=== PATIENT | female | born 1990 | race Caucasian/White ===

== ENCOUNTER 2017-03-24 22:23 | Emergency (ER) | payer SELFPAY ==
[2017-03-24 22:39] VITALS: BP 124/79
[2017-03-24] MEDS ORDERED: Ondansetron 4 MG Tab.DIS PO ONE (23:44)
[2017-03-24] MEDS ORDERED: Acetaminophen/oxyCODONE 325-5 MG Tab PO ONE (23:46)
[2017-03-24] MEDS ORDERED: Clindamycin HCl 150 MG Cap PO ONE (23:46)
--- NOTE | 2017-03-24 23:51 | EDM.PDOC ---
ED HPI GENERAL MEDICAL PROBLEM - General Chief Complaint: ENT Problem Stated Complaint: TOOTHACHE/EAR AND NECK HURTS Time Seen by Provider: 03/24/17 23:44 Source of Information: Reports: Patient History Limitations: Reports: No Limitations - History of Present Illness INITIAL COMMENTS - FREE TEXT/NARRATIVE: 26-year-old female presents to the ED with severe pain right lower canine tooth. She states 4 days ago she bit into a taco chip and the tooth fractured. Initially it hurt it was sensitive to air but over the last 48 hours is become constant throbbing pain and she can feel swelling along her right mandible bringing up into her right ear. Motrin in high dose has not been controlling the pain. 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.) Lower Oral/Mouth Pain Score (Numeric/FACES): 7 - Related Data Allergies Allergy/AdvReac Type Severity Reaction Status Date / Time No Known Allergies Allergy Verified 03/24/17 22:32 Home Meds: Home Meds Albuterol [Ventolin HFA] 2 puff INH ASDIRECTED PRN 03/24/17 [History] Clindamycin HCl 300 mg PO TID #24 capsule 03/24/17 [Rx] Ibuprofen [Motrin] 800 mg PO Q6H PRN 03/24/17 [History] Ondansetron [Zofran ODT] 4 mg PO Q6H #2 tab.dis 03/24/17 [Rx] Ondansetron [Zofran ODT] 4 mg PO Q6H #5 tab.dis 03/24/17 [Rx] oxyCODONE HCl/Acetaminophen [Percocet 5-325 mg Tablet] 1 - 2 each PO Q4H PRN # 20 tablet 03/24/17 [Rx] oxyCODONE HCl/Acetaminophen [Percocet 5-325 mg Tablet] 1 - 2 each PO Q4H PRN #5 tablet 03/24/17 [Rx] Past Medical History HEENT History: Reports: Impaired Vision Respiratory History: Reports: Asthma Gastrointestinal History: Reports: Cholelithiasis 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: - Past Surgical History GI Surgical History: Reports: Appendectomy, Cholecystectomy Social & Family History - Family History Family Medical History: Noncontributory - Tobacco Use Smoking Status *Q: Never Smoker - Caffeine Use Caffeine Use: Reports: Soda - Recreational Drug Use Recreational Drug Use: No - Living Situation & Occupation Living situation: Reports: Occupation: Unemployed ED ROS ENT - Review of Systems Review Of Systems: See Below Constitutional: Denies: Fever, Chills, Malaise, Weakness, Fatigue HEENT: Reports: Dental Pain (Dental pain right), Ear Pain (Right side) Respiratory: Reports: No Symptoms Cardiovascular: Reports: No Symptoms Endocrine: Reports: No Symptoms GI/Abdominal: Reports: No Symptoms : Reports: No Symptoms Musculoskeletal: Reports: No Symptoms Skin: Reports: No Symptoms Neurological: Reports: No Symptoms Psychiatric: Reports: No Symptoms Hematologic/Lymphatic: Reports: No Symptoms ED EXAM, ENT - Physical Exam Exam: See Below Exam Limited By: No Limitations General Appearance: Alert, WD/WN, Moderate Distress Ears: Normal TMs Mouth/Throat: Dental Pain (Pain is coming from fracture of the crown of the right lower canine tooth. Hall me 40% of the lingual surface is fractured away from the tooth. The pulp is likely exposed.), Dental Tenderness, Dental Trauma ( Severe right lower canine tooth fractured the tooth by biting into a taco chip.) , Other (Right facial swelling along the mandible.) Head: Atraumatic, Normocephalic, Facial Swelling (Along the right mandible rating up to her right ear.) Neck: Normal Inspection, Supple, Non-Tender, Full Range of Motion. No: Lymphadenopathy (L), Lymphadenopathy (R) Respiratory/Chest: No Respiratory Distress, Lungs Clear, Normal Breath Sounds, No Accessory Muscle Use Course - Vital Signs Last Recorded V/S: Last Vital Signs Temp 36.3 C 03/24/17 22:34 Pulse 84 03/24/17 22:34 Resp 18 03/24/17 22:34 BP 124/79 03/24/17 22:34 Pulse Ox 100 03/24/17 22:34 - Orders/Labs/Meds Meds: Medications Discontinued Medications Generic Name Dose Route Start Last Admin Trade Name Daniel PRN Reason Stop Dose Admin Clindamycin HCl 300 mg 03/24/17 23:46 03/24/17 23:59 Cleocin PO 03/24/17 23:47 300 mg ONETIME ONE Administration Ondansetron HCl 4 mg 03/24/17 23:44 03/24/17 23:58 Zofran Odt PO 03/24/17 23:45 4 mg ONETIME ONE Administration Oxycodone/Acetaminophen 2 tab 03/24/17 23:46 03/24/17 23:58 Percocet 325-5 Mg PO 03/24/17 23:47 2 tab ONETIME ONE Administration - Radiology Interpretation Free Text/Narrative:: 26-year-old female presents to the ED with dental pain right lower canine tooth. She reports she bit into a taco chip in the tooth fractured about 4 days ago. Initially was very sensitive to air into temperature over the last 48 hours has become constant severe throbbing pain uncontrolled by Motrin at high doses. Examination shows no obvious abscess of the gingiva margin. The crown of the tooth isn't fractured partially 40% of the lingual surfaces broken away and the pulp is exposed suspect secondary infection. Treated with Percocet tabs 2 tablets given in the ED 02/11/25 milligrams strength with Zofran 4 mg sublingual as she mentioned she gets quite nauseated from Vicodin in the past. She will continue Aleve 2 tablets every 8 hours. Percocet 1 tablet every 4-6 hours needed for pain relief with Zofran that I did send home with her if needed for nausea relief. She was placed on clindamycin 300 mg given in the ED and then she is to take 300 mg 3 times a day for direct 8 days. She is to follow-up with dentist as soon as possible to have the tooth x-rayed and potentially capped or root canal done. The tooth is still salvageable. Departure - Departure Time of Disposition: 23:47 Disposition: Home, Self-Care 01 Condition: Fair Clinical Impression: Pain, dental Fractured tooth due to trauma with complication Qualifiers: Encounter type: initial encounter Fracture type: closed Qualified Code(s): S02.5XXA - Fracture of tooth (traumatic), initial encounter for closed fracture - Discharge Information Prescriptions: Clindamycin HCl 300 mg PO TID #24 capsule Ondansetron [Zofran ODT] 4 mg PO Q6H #2 tab.dis Ondansetron [Zofran ODT] 4 mg PO Q6H #5 tab.dis oxyCODONE HCl/Acetaminophen [Percocet 5-325 mg Tablet] 1 - 2 each PO Q4H PRN #5 tablet PRN Reason: pain relief. oxyCODONE HCl/Acetaminophen [Percocet 5-325 mg Tablet] 1 - 2 each PO Q4H PRN # 20 tablet PRN Reason: pain relief. Instructions: Tooth Injuries, [id number] Referrals: PCP,None [Primary Care Provider] - Forms: ED Department Discharge Additional Instructions: Evaluation in the emergency room today in regards to fracture of the right lower canine tooth with secondary infection developing with spread of infection along the mandible or jaw towards her ear. The tooth is still salvageable and so follow-up with dentist as soon as able. Suggest Aleve 2 tablets every 8 hours to relieve pain and inflammation. Percocet 5/325 milligrams tablet 1 or 2 every 4-6 hours as needed for pain relief. May use Zofran 4 mg under tongue every 6 hours a few expense any nausea from the pain medication. Antibiotic is to be clindamycin 300 mg 3 times daily for the next 8 days to clear up infection. First dose was given in the ED tonight. If you don't find any luck with a local dentist tomorrow you may call [facility] in [place] phone number is [phone] Thuan Ellis.
== END 2017-03-25 00:30 | disposition home or self-care (01) ==
LOC: JD.ED 22:23
DX: K08.89 Other specified disorders of teeth and supporting structures (principal); J45.909 Unspecified asthma, uncomplicated; Z90.49 Acquired absence of other specified parts of digestive tract
CPT/HCPCS: 99283; A9270

== ENCOUNTER 2017-04-29 22:09 | Emergency (ER) | payer SELFPAY ==
[2017-04-29 22:19] VITALS: BP 133/91
[2017-04-29] MEDS ORDERED: Clindamycin HCl 150 MG Cap PO ONE (23:03)
--- NOTE | 2017-04-29 23:03 | EDM.PDOC ---
ED HPI GENERAL MEDICAL PROBLEM - General Chief Complaint: ENT Problem Stated Complaint: TOOTHACHE/HEADACHE Time Seen by Provider: 04/29/17 22:50 Source of Information: Reports: Patient History Limitations: Reports: No Limitations - History of Present Illness INITIAL COMMENTS - FREE TEXT/NARRATIVE: Patient is a history of poor dentition and presents ED complaining of right lower teeth pain or she has large fillings in place (32,31,30). In addition she has pain to the left # 11 tooth. States she's been having intermittent pain to the affected teeth for quite some time. She has been on antibiotics such as amoxicillin approximate 6 weeks ago for similar symptoms. She is waiting for her to obtain dental insurance to which she can have definitive treatment. She has contacted a dentist and [place] that will allow her to pay [employer]. Unknown name. This is scheduled for next Thursday. Pain is described as a throbbing sensation that radiates into her back portion of her jaw. She has not taken any medications for it as of recent. Has increasing pain with chewing on the affected sides. She denies fever/chills, nausea/vomiting, pain to her neck, or any additional complaint. 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 ED EXAM, ENT - Physical Exam Exam: See Below Exam Limited By: No Limitations General Appearance: Alert, WD/WN, Mild Distress Eye Exam: Bilateral Eye: PERRL Ears: Hearing Grossly Normal Nose: Normal Inspection Mouth/Throat: Normal Inspection, Dental Tenderness (With gentle pressure to #32 , 31, 30, and 11 tooth. Poor dentition noted. Mild gum swelling present.). No: Drooling, Dry Mucous Membrane, Muffled Voice, Pharyngeal Erythema, Throat Swelling, Tonsillar Erythema, Tonsillar Exudates, Tonsillar Swelling, Trismus, Uvular Deviation Head: Atraumatic, Normocephalic Neck: Normal Inspection, Supple, Non-Tender. No: Lymphadenopathy (L), Lymphadenopathy (R) Respiratory/Chest: No Respiratory Distress, No Accessory Muscle Use Cardiovascular: Normal Peripheral Pulses, Regular Rate, Rhythm Neurological: Alert, Oriented, CN II-XII Intact, Normal Cognition, No Motor/ Sensory Deficits Psychiatric: Normal Affect, Normal Mood Skin: Warm, Dry, Intact, Normal Color Course - Vital Signs Last Recorded V/S: Last Vital Signs Temp 97.7 F 04/29/17 22:15 Pulse 69 04/29/17 22:15 Resp 16 04/29/17 22:15 BP 133/91 H 04/29/17 22:15 Pulse Ox 98 04/29/17 22:15 - Re-Assessments/Exams Free Text/Narrative Re-Assessment/Exam: Performed an right-sided inferior alveolar block with bupivacaine. Patient had immediate relief. Pain to the left upper tooth is not that significant. No dental block will be performed. Patient's been on amoxicillin in the past. Will place her on clindamycin with first doses here. She'll be discharged with instructions as documented. Departure - Departure Time of Disposition: 23:03 Disposition: Home, Self-Care 01 Condition: Good Clinical Impression: Dental abscess, Dental caries extending into dentin, Dental caries, Pain, dental - Discharge Information Prescriptions: Clindamycin HCl 300 mg PO TID #30 capsule Forms: ED Department Discharge Additional Instructions: Take the antibiotic as prescribed with a OTC probiotic. Utilize Tylenol and ibuprofen in alternating fashion for pain. See a dentist for definitive treatment. Return to ED as needed for any worsening symptoms.
== END 2017-04-29 23:28 | disposition home or self-care (01) ==
LOC: JD.ED 22:09
DX: K04.7 Periapical abscess without sinus (principal); K02.62 Dental caries on smooth surface penetrating into dentin; J45.909 Unspecified asthma, uncomplicated; Z90.49 Acquired absence of other specified parts of digestive tract
CPT/HCPCS: 64400; 99283; A9270

== ENCOUNTER 2017-05-02 05:11 | Emergency (ER) | payer SELFPAY ==
[2017-05-02 05:19] VITALS: BP 128/73
--- NOTE | 2017-05-02 05:52 | EDM.PDOC ---
ED HPI GENERAL MEDICAL PROBLEM - General Chief Complaint: Back Pain or Injury Stated Complaint: RIGHT SIDE AND BACK PAINS Time Seen by Provider: 05/02/17 05:18 Source of Information: Reports: Patient, Old Records, RN Notes Reviewed History Limitations: Reports: No Limitations - History of Present Illness INITIAL COMMENTS - FREE TEXT/NARRATIVE: The patient states that she developed pain in her right SI joint area yesterday morning, 05/01/2017. It is stabbing and crampy in character. It waxes and wanes. The patient has not identified any modifiers. She states that she has had nausea and nonbloody diarrhea, along with urinary frequency and urgency, but denies dysuria, fever, and constipation. No prior similar symptoms. The patient confirms that she is sexually active. The patient does not have a PCP. 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: - Past Surgical History GI Surgical History: Reports: Appendectomy, Cholecystectomy Social & Family History - Family History Family Medical History: Noncontributory - Tobacco Use Smoking Status *Q: Never Smoker - Caffeine Use Caffeine Use: Reports: Coffee, Soda - Alcohol Use Alcohol Use History: No - Recreational Drug Use Recreational Drug Use: No - Living Situation & Occupation Living situation: Reports: , with Spouse, with Family (3 kids) Occupation: Unemployed ED ROS GENERAL - Review of Systems Review Of Systems: See Below Constitutional: Reports: No Symptoms HEENT: Reports: No Symptoms Respiratory: Reports: No Symptoms Cardiovascular: Reports: No Symptoms Endocrine: Reports: No Symptoms GI/Abdominal: Reports: No Symptoms : Reports: No Symptoms Musculoskeletal: Reports: No Symptoms Skin: Reports: No Symptoms Neurological: Reports: No Symptoms Psychiatric: Reports: No Symptoms Hematologic/Lymphatic: Reports: No Symptoms Immunologic: Reports: No Symptoms ED EXAM, GENERAL - Physical Exam Exam: See Below Exam Limited By: No Limitations General Appearance: Alert, WD/WN, Mild Distress Eye Exam: Bilateral Eye: Normal Inspection Ears: Normal External Exam, Hearing Grossly Normal Nose: Normal Inspection, No Blood Throat/Mouth: Normal Inspection, Normal Lips, Normal Voice, No Airway Compromise Head: Atraumatic, Normocephalic Neck: Normal Inspection, Full Range of Motion Respiratory/Chest: No Respiratory Distress, Lungs Clear, Normal Breath Sounds, No Accessory Muscle Use Cardiovascular: Normal Peripheral Pulses, Regular Rate, Rhythm, No Gallop, No JVD, No Murmur, No Rub Peripheral Pulses: 4+: Radial (L), Radial (R) GI/Abdominal: Normal Bowel Sounds, Soft, No Organomegaly, No Distention, No Abnormal Bruit, No Mass, Tender (Mild, to the right lower quadrant only. Nontender elsewhere.) (Female) Exam: Deferred Rectal (Female) Exam: Deferred Back Exam: Normal Inspection, Full Range of Motion, CVA Tenderness (L), CVA Tenderness (R) Extremities: Normal Inspection, Normal Range of Motion, No Pedal Edema, Normal Capillary Refill Neurological: Alert, Oriented, Normal Cognition, No Motor/Sensory Deficits Psychiatric: Normal Affect Skin Exam: Warm, Dry, Intact, Normal Color, No Rash Lymphatic: No Adenopathy Course - Vital Signs Last Recorded V/S: Last Vital Signs Temp 37.7 C 05/02/17 05:16 Pulse 108 H 05/02/17 05:16 Resp 16 05/02/17 05:16 BP 128/73 05/02/17 05:16 Pulse Ox 100 05/02/17 05:16 - Orders/Labs/Meds Orders: Active Orders 24 hr Category Date Time Status CULTURE URINE [RM] Stat Lab 05/02/17 06:05 Uncollected Labs: Laboratory Tests 05/02/17 05/02/17 Range/Units 05:25 05:25 Urine Color Yellow (Yellow) Urine Appearance Cloudy H (Clear) Urine pH 6.0 (5.0-8.0) Ur Specific [place] 1.025 (1.005-1.030) Urine Protein 2+ H (Negative) Urine Glucose (UA) Negative (Negative) Urine Ketones Negative (Negative) Urine Occult Blood 2+ H (Negative) Urine Nitrite Positive H (Negative) Urine Bilirubin Negative (Negative) Urine Urobilinogen 0.2 (0.2-1.0) Ur Leukocyte Esterase 2+ H (Negative) Urine RBC 20-30 H (0-5) /hpf Urine WBC 75-100 H (0-5) /hpf Ur Epithelial Cells 0-5 (0-5) /hpf Amorphous Sediment Few H (NOT SEEN) /hpf Urine Bacteria Many H (FEW) /hpf Urine Mucus Few (FEW) /hpf Urine HCG, Qual Negative (NEGATIVE) Meds: Medications Discontinued Medications Generic Name Dose Route Start Last Admin Trade Name Frejoanna PRN Reason Stop Dose Admin Phenazopyridine HCl 95 mg 05/02/17 06:06 Urinary Pain Relief PO 05/02/17 06:07 ONETIME STA Trimethoprim/Sulfamethoxazole 1 tab 05/02/17 06:06 Septra Ds PO 05/02/17 06:07 ONETIME ONE - Re-Assessments/Exams Free Text/Narrative Re-Assessment/Exam: 05/02/17 06:11 Test results discussed with the patient. Her urinalysis is consistent with a UTI. A urine culture has been ordered. I will start her on oral Bactrim as well as her first dose of Pyridium. She is to stay adequately hydrated. I will refer her to the office of Dr. Henderson, where she should check in Thursday afternoon or Thursday morning, 05/05/2017, to check on her urine culture results. Departure - Departure Time of Disposition: 06:13 Disposition: Home, Self-Care 01 Condition: Good Clinical Impression: UTI (urinary tract infection) - Discharge Information Referrals: PCP,None [Primary Care Provider] - Joseluis Henderson [Physician] - Forms: ED Department Discharge Additional Instructions: You were seen in the emergency room for lower right back pain. Workup in the ER included a urinalysis, urine test, and a urine culture Your urinalysis is consistent with a urinary tract infection. You have been started on the antibiotic Bactrim. Take one tablet every 12 hours , as prescribed. Finish the entire prescription unless told otherwise by a doctor. You have been started on the anti-pain medicine Pyridium. This is also sold over -the-counter as "Azo". You may take a total of 5 more doses - either 3 times a day for 2 days, or 2 times a day for 3 days. Azo will turn your urine orange - this is normal. Stay adequately hydrated. This is especially important if you are sexually active. Contact the office of Dr. Henderson on Thursday afternoon, 05/04/2017, or 05/05/2017, to check on your urine culture results, to make sure that you are on the right antibiotic. If any other problems, please do not hesitate to return to the ER. - My Orders Last 24 Hours: My Active Orders 05/02/17 06:05 CULTURE URINE [RM] Stat - Assessment/Plan Last 24 Hours: My Active Orders 05/02/17 06:05 CULTURE URINE [RM] Stat
[2017-05-02] MEDS ORDERED: Sulfamethoxazole/Trimethoprim 800-160 MG Tab PO ONE (06:06)
[2017-05-02] MEDS ORDERED: Phenazopyridine 95 MG Tab PO STA (06:06)
== END 2017-05-02 06:25 | disposition home or self-care (01) ==
LOC: JD.ED 05:11
DX: N39.0 Urinary tract infection, site not specified (principal); J45.909 Unspecified asthma, uncomplicated; Z90.49 Acquired absence of other specified parts of digestive tract; Z79.899 Other long term (current) drug therapy
CPT/HCPCS: 81001; 81025; 87086; 87088; 87186; 99283; A9270; P9612

== ENCOUNTER 2018-03-28 12:44 | Emergency (ER) | payer BC ==
[2018-03-28 12:54] VITALS: BP 139/85
[2018-03-28] MEDS ORDERED: SUMAtriptan 6 MG/0.5 ML SDV SUBCUT ONE (13:43)
--- NOTE | 2018-03-28 13:43 | EDM.PDOC ---
ED HPI GENERAL MEDICAL PROBLEM - General Chief Complaint: Headache Stated Complaint: MIGRAINE AND LT EYE NOT FOCUSING Time Seen by Provider: 03/28/18 13:30 Source of Information: Reports: Patient History Limitations: Reports: No Limitations - History of Present Illness INITIAL COMMENTS - FREE TEXT/NARRATIVE: This is a 27-year-old female that has come in today for migraine. She states she had a headache started 4 days ago but it did not turn into a migraine until yesterday where she started to have light sensitivity, weakness, and started to have auras such as "flashing lights" and "pulsating spots". She has never had this type of migraine before. She states last night she felt so weak that she couldn't stand up and her legs "felt like mush". She also states that her left eye feels swollen and she can't focus and it "starts to move on its own". She had no history of this in the past. She also cannot wear her glasses because of the pain and the only thing that helps is being in a dark room with her eyes closed. She did try caffeine, Tylenol, Ibuprofen and meloxicam with no relief. She did not have any trauma, this was a random onset. She currently complains of nausea, weakness, night sweats, pain 6 out of 10. No vomiting. She is currently not on any control and has no other significant past medical history. Next appointment with her eye doctor is end of April. Headache Pain Score (Numeric/FACES): 7 - Related Data Allergies Allergy/AdvReac Type Severity Reaction Status Date / Time No Known Allergies Allergy Verified 05/02/17 05:19 Home Meds: Home Meds Ibuprofen [Motrin] 600 mg PO DAILY PRN 05/02/17 [History] Rizatriptan Benzoate [Rizatriptan] 5 mg PO Q2H PRN #5 tab.rapdis 03/28/18 [Rx] Past Medical History HEENT History: Reports: Impaired Vision Respiratory History: Reports: Asthma Gastrointestinal History: Reports: Cholelithiasis [employer] History: Reports: Musculoskeletal History: Reports: Other (See Below) Other Musculoskeletal History: Accessory nebicular - Past Surgical History GI Surgical History: Reports: Appendectomy, Cholecystectomy Social & Family History - Family History Family Medical History: Noncontributory - Tobacco Use Smoking Status *Q: Never Smoker - Caffeine Use Caffeine Use: Reports: Coffee, Soda - Recreational Drug Use Recreational Drug Use: No - Living Situation & Occupation Living situation: Reports: , with Spouse, with Family (3 kids) Occupation: Unemployed ED ROS GENERAL - Review of Systems Review Of Systems: See Below Constitutional: Reports: Weakness, Night Sweats. Denies: Fever, Chills HEENT: Reports: Eye Pain (left eye, also "moves on it's own"), Glasses ( currently not wearing, hurts her eyes to focus), Vision Change (aura) Respiratory: Reports: No Symptoms Cardiovascular: Reports: No Symptoms. Denies: Chest Pain, Palpitations GI/Abdominal: Reports: No Symptoms Musculoskeletal: Reports: No Symptoms Skin: Reports: No Symptoms Neurological: Reports: Headache (6-04/20 headache), Weakness (generalized). Denies: Confusion, Dizziness, Numbness, Tingling, Trouble Speaking, Change in Speech Psychiatric: Reports: Anxiety, Other (tearful) - Physical Exam Exam: See Below Exam Limited By: No Limitations General Appearance: Alert, WD/WN, Anxious, Mild Distress Eye Exam: Bilateral Eye: EOMI, PERRL, Other (gaze palsy in left eye) Throat/Mouth: Normal Inspection, Normal Lips, Normal Teeth, Normal Gums, Normal Oropharynx, Normal Voice, No Airway Compromise Head Exam: Atraumatic, Normocephalic Respiratory/Chest: No Respiratory Distress, Lungs Clear, Normal Breath Sounds, No Accessory Muscle Use, Chest Non-Tender Cardiovascular: Normal Peripheral Pulses, Regular Rate, Rhythm, No Edema, No Gallop, No JVD, No Murmur, No Rub GI/Abdominal: Normal Bowel Sounds, Soft, Non-Tender, No Organomegaly, No Distention, No Abnormal Bruit, No Mass Neuro Exam (Abbreviated): Alert, Oriented, CN II-XII Intact, Normal Cognition, Normal Gait, Normal Reflexes, No Motor/Sensory Deficits, Other (strength equal bilaterally) Extremities: Normal Inspection, Normal Range of Motion, Non-Tender, No Pedal Edema, Normal Capillary Refill Psychiatric: Normal Affect, Anxious, Tearful Skin Exam: Warm, Dry, Intact, Normal Color, No Rash Course - Vital Signs Last Recorded V/S: Last Vital Signs Temp 98.5 F 03/28/18 12:52 Pulse 92 03/28/18 12:52 Resp 18 03/28/18 12:52 BP 139/85 03/28/18 12:52 Pulse Ox 98 03/28/18 12:52 - Orders/Labs/Meds Meds: Medications Discontinued Medications Generic Name Dose Route Start Last Admin Trade Name Freq PRN Reason Stop Dose Admin Hydromorphone HCl 0.5 mg 03/28/18 14:48 03/28/18 15:00 Dilaudid IVPUSH 03/28/18 14:49 Not Given ONETIME ONE Hydromorphone HCl 0.5 mg 03/28/18 15:00 03/28/18 15:01 Dilaudid IM 03/28/18 15:01 0.5 mg ONETIME ONE Administration Ondansetron HCl 4 mg 03/28/18 13:46 03/28/18 14:44 Zofran Odt PO 03/28/18 13:47 Not Given ONETIME ONE Promethazine HCl 25 mg 03/28/18 13:48 03/28/18 13:59 Phenergan IM 03/28/18 13:49 25 mg ONETIME ONE Administration Sumatriptan Succinate 6 mg 03/28/18 13:43 03/28/18 14:44 Imitrex SUBCUT 03/28/18 13:44 Not Given ONETIME ONE - Re-Assessments/Exams Free Text/Narrative Re-Assessment/Exam: Per pt history and exam, this seems most like a migraine which is causing some left eye gaze palsy. Her neuro exam here was normal, equal strength bilaterally and sensation intact. There was some left eye gaze palsy on exam. Other than that, eye exam was normal, PERRLA. Will give Phenergan IM and Dilaudid 0.5mg IM and see if helps resolve. No IV fluids needed at this time as her vitals are stable and she was able to eat and drink this morning without vomiting. Departure - Departure Time of Disposition: 15:47 Disposition: Home, Self-Care 01 Condition: Good Clinical Impression: Migraine - Discharge Information Prescriptions: Rizatriptan Benzoate [Rizatriptan] 5 mg PO Q2H PRN #5 tab.rapdis PRN Reason: Other Instructions: Recurrent Migraine Headache, [id number], Migraine Headache, [id number] Referrals: PCP,None [Primary Care Provider] - Forms: ED Department Discharge Additional Instructions: ED HPI GENERAL MEDICAL PROBLEM - General Chief Complaint: Headache Stated Complaint: MIGRAINE AND LT EYE NOT FOCUSING Time Seen by Provider: 03/28/18 13:30 Source of Information: Reports: Patient History Limitations: Reports: No Limitations - History of Present Illness INITIAL COMMENTS - FREE TEXT/NARRATIVE: This is a 27-year-old female that has come in today for migraine. She states she had a headache started 4 days ago but it did not turn into a migraine until yesterday where she started to have light sensitivity, weakness, and started to have auras such as "flashing lights" and "pulsating spots". She has never had this type of migraine before. She states last night she felt so weak that she couldn't stand up and her legs "felt like mush". She also states that her left eye feels swollen and she can't focus and it "starts to move on its own". She had no history of this in the past. She also cannot wear her glasses because of the pain and the only thing that helps is being in a dark room with her eyes closed. She did try caffeine, Tylenol, Ibuprofen and meloxicam with no relief. She did not have any trauma, this was a random onset. She currently complains of nausea, weakness, night sweats, pain 6 out of 10. No vomiting. She is currently not on any control and has no other significant past medical history. Next appointment with her eye doctor is end of April. Headache Pain Score (Numeric/FACES): 7 - Related Data Allergies Allergy/AdvReac Type Severity Reaction Status Date / Time No Known Allergies Allergy Verified 05/02/17 05:19 Home Meds: Home Meds Ibuprofen [Motrin] 600 mg PO DAILY PRN 05/02/17 [History] Past Medical History HEENT History: Reports: Impaired Vision Respiratory History: Reports: Asthma Gastrointestinal History: Reports: Cholelithiasis [employer] History: Reports: Musculoskeletal History: Reports: Other (See Below) Other Musculoskeletal History: Accessory nebicular - Past Surgical History GI Surgical History: Reports: Appendectomy, Cholecystectomy Social & Family History - Family History Family Medical History: Noncontributory - Tobacco Use Smoking Status *Q: Never Smoker - Caffeine Use Caffeine Use: Reports: Coffee, Soda - Recreational Drug Use Recreational Drug Use: No - Living Situation & Occupation Living situation: Reports: , with Spouse, with Family (3 kids) Occupation: Unemployed ED ROS GENERAL - Review of Systems Review Of Systems: See Below Constitutional: Reports: Weakness, Night Sweats. Denies: Fever, Chills HEENT: Reports: Eye Pain (left eye, also "moves on it's own"), Glasses ( currently not wearing, hurts her eyes to focus), Vision Change (aura) Respiratory: Reports: No Symptoms Cardiovascular: Reports: No Symptoms. Denies: Chest Pain, Palpitations GI/Abdominal: Reports: No Symptoms Musculoskeletal: Reports: No Symptoms Skin: Reports: No Symptoms Neurological: Reports: Headache (6-04/20 headache), Weakness (generalized). Denies: Confusion, Dizziness, Numbness, Tingling, Trouble Speaking, Change in Speech Psychiatric: Reports: Anxiety, Other (tearful) - Physical Exam Exam: See Below Exam Limited By: No Limitations General Appearance: Alert, WD/WN, Anxious, Mild Distress Eye Exam: Bilateral Eye: EOMI, PERRL, Other (gaze palsy in left eye) Throat/Mouth: Normal Inspection, Normal Lips, Normal Teeth, Normal Gums, Normal Oropharynx, Normal Voice, No Airway Compromise Head Exam: Atraumatic, Normocephalic Respiratory/Chest: No Respiratory Distress, Lungs Clear, Normal Breath Sounds, No Accessory Muscle Use, Chest Non-Tender Cardiovascular: Normal Peripheral Pulses, Regular Rate, Rhythm, No Edema, No Gallop, No JVD, No Murmur, No Rub GI/Abdominal: Normal Bowel Sounds, Soft, Non-Tender, No Organomegaly, No Distention, No Abnormal Bruit, No Mass Neuro Exam (Abbreviated): Alert, Oriented, CN II-XII Intact, Normal Cognition, Normal Gait, Normal Reflexes, No Motor/Sensory Deficits, Other (strength equal bilaterally) Extremities: Normal Inspection, Normal Range of Motion, Non-Tender, No Pedal Edema, Normal Capillary Refill Psychiatric: Normal Affect, Anxious, Tearful Skin Exam: Warm, Dry, Intact, Normal Color, No Rash Course - Vital Signs Last Recorded V/S: Last Vital Signs Temp 98.5 F 03/28/18 12:52 Pulse 92 03/28/18 12:52 Resp 18 03/28/18 12:52 BP 139/85 03/28/18 12:52 Pulse Ox 98 03/28/18 12:52 - Orders/Labs/Meds Meds: Medications Discontinued Medications Generic Name Dose Route Start Last Admin Trade Name Daniel PRN Reason Stop Dose Admin Hydromorphone HCl 0.5 mg 03/28/18 14:48 03/28/18 15:00 Dilaudid IVPUSH 03/28/18 14:49 Not Given ONETIME ONE Hydromorphone HCl 0.5 mg 03/28/18 15:00 03/28/18 15:01 Dilaudid IM 03/28/18 15:01 0.5 mg ONETIME ONE Administration Ondansetron HCl 4 mg 03/28/18 13:46 03/28/18 14:44 Zofran Odt PO 03/28/18 13:47 Not Given ONETIME ONE Promethazine HCl 25 mg 03/28/18 13:48 03/28/18 13:59 Phenergan IM 03/28/18 13:49 25 mg ONETIME ONE Administration Sumatriptan Succinate 6 mg 03/28/18 13:43 03/28/18 14:44 Imitrex SUBCUT 03/28/18 13:44 Not Given ONETIME ONE - Re-Assessments/Exams Free Text/Narrative Re-Assessment/Exam: Per pt history and exam, this seems most like a migraine which is causing some left eye gaze palsy. Her neuro exam here was normal, equal strength bilaterally and sensation intact. There was some left eye gaze palsy on exam. Other than that, eye exam was normal, PERRLA. Will give Phenergan IM and Dilaudid 0.5mg IM and see if helps resolve. No IV fluids needed at this time as her vitals are stable and she was able to eat and drink this morning without vomiting. Departure - Departure Time of Disposition: 15:47 Disposition: Home, Self-Care 01 Condition: Good Clinical Impression: Migraine - Discharge Information Instructions: Recurrent Migraine Headache, [id number], Migraine Headache, [id number] Referrals: PCP,None [Primary Care Provider] - Forms: ED Department Discharge ED HPI GENERAL MEDICAL PROBLEM - General Chief Complaint: Headache Stated Complaint: MIGRAINE AND LT EYE NOT FOCUSING Time Seen by Provider: 03/28/18 13:30 Source of Information: Reports: Patient History Limitations: Reports: No Limitations - History of Present Illness INITIAL COMMENTS - FREE TEXT/NARRATIVE: This is a 27-year-old female that has come in today for migraine. She states she had a headache started 4 days ago but it did not turn into a migraine until yesterday where she started to have light sensitivity, weakness, and started to have auras such as "flashing lights" and "pulsating spots". She has never had this type of migraine before. She states last night she felt so weak that she couldn't stand up and her legs "felt like mush". She also states that her left eye feels swollen and she can't focus and it "starts to move on its own". She had no history of this in the past. She also cannot wear her glasses because of the pain and the only thing that helps is being in a dark room with her eyes closed. She did try caffeine, Tylenol, Ibuprofen and meloxicam with no relief. She did not have any trauma, this was a random onset. She currently complains of nausea, weakness, night sweats, pain 6 out of 10. No vomiting. She is currently not on any control and has no other significant past medical history. Next appointment with her eye doctor is end april. Headache Pain Score (Numeric/FACES): 7 - Related Data Allergies Allergy/AdvReac Type Severity Reaction Status Date / Time No Known Allergies Allergy Verified 05/02/17 05:19 Home Meds: Home Meds Ibuprofen [Motrin] 600 mg PO DAILY PRN 05/02/17 [History] Past Medical History HEENT History: Reports: Impaired Vision Respiratory History: Reports: Asthma Gastrointestinal History: Reports: Cholelithiasis [employer] History: Reports: Musculoskeletal History: Reports: Other (See Below) Other Musculoskeletal History: Accessory nebicular - Past Surgical History GI Surgical History: Reports: Appendectomy, Cholecystectomy Social & Family History - Family History Family Medical History: Noncontributory - Tobacco Use Smoking Status *Q: Never Smoker - Caffeine Use Caffeine Use: Reports: Coffee, Soda - Recreational Drug Use Recreational Drug Use: No - Living Situation & Occupation Living situation: Reports: , with Spouse, with Family (3 kids) Occupation: Unemployed ED ROS GENERAL - Review of Systems Review Of Systems: See Below Constitutional: Reports: Weakness, Night Sweats. Denies: Fever, Chills HEENT: Reports: Eye Pain (left eye, also "moves on it's own"), Glasses ( currently not wearing, hurts her eyes to focus), Vision Change (aura) Respiratory: Reports: No Symptoms Cardiovascular: Reports: No Symptoms. Denies: Chest Pain, Palpitations GI/Abdominal: Reports: No Symptoms Musculoskeletal: Reports: No Symptoms Skin: Reports: No Symptoms Neurological: Reports: Headache (6-7/10 headache), Weakness (generalized). Denies: Confusion, Dizziness, Numbness, Tingling, Trouble Speaking, Change in Speech Psychiatric: Reports: Anxiety, Other (tearful) - Physical Exam Exam: See Below Exam Limited By: No Limitations General Appearance: Alert, WD/WN, Anxious, Mild Distress Eye Exam: Bilateral Eye: EOMI, PERRL, Other (gaze palsy in left eye) Throat/Mouth: Normal Inspection, Normal Lips, Normal Teeth, Normal Gums, Normal Oropharynx, Normal Voice, No Airway Compromise Head Exam: Atraumatic, Normocephalic Respiratory/Chest: No Respiratory Distress, Lungs Clear, Normal Breath Sounds, No Accessory Muscle Use, Chest Non-Tender Cardiovascular: Normal Peripheral Pulses, Regular Rate, Rhythm, No Edema, No Gallop, No JVD, No Murmur, No Rub GI/Abdominal: Normal Bowel Sounds, Soft, Non-Tender, No Organomegaly, No Distention, No Abnormal Bruit, No Mass Neuro Exam (Abbreviated): Alert, Oriented, CN II-XII Intact, Normal Cognition, Normal Gait, Normal Reflexes, No Motor/Sensory Deficits, Other (strength equal bilaterally) Extremities: Normal Inspection, Normal Range of Motion, Non-Tender, No Pedal Edema, Normal Capillary Refill Psychiatric: Normal Affect, Anxious, Tearful Skin Exam: Warm, Dry, Intact, Normal Color, No Rash Course - Vital Signs Last Recorded V/S: Last Vital Signs Temp 98.5 F 03/28/18 12:52 Pulse 92 03/28/18 12:52 Resp 18 03/28/18 12:52 BP 139/85 03/28/18 12:52 Pulse Ox 98 03/28/18 12:52 - Orders/Labs/Meds Meds: Medications Discontinued Medications Generic Name Dose Route Start Last Admin Trade Name Freq PRN Reason Stop Dose Admin Hydromorphone HCl 0.5 mg 03/28/18 14:48 03/28/18 15:00 Dilaudid IVPUSH 03/28/18 14:49 Not Given ONETIME ONE Hydromorphone HCl 0.5 mg 03/28/18 15:00 03/28/18 15:01 Dilaudid IM 03/28/18 15:01 0.5 mg ONETIME ONE Administration Ondansetron HCl 4 mg 03/28/18 13:46 03/28/18 14:44 Zofran Odt PO 03/28/18 13:47 Not Given ONETIME ONE Promethazine HCl 25 mg 03/28/18 13:48 03/28/18 13:59 Phenergan IM 03/28/18 13:49 25 mg ONETIME ONE Administration Sumatriptan Succinate 6 mg 03/28/18 13:43 03/28/18 14:44 Imitrex SUBCUT 03/28/18 13:44 Not Given ONETIME ONE - Re-Assessments/Exams Free Text/Narrative Re-Assessment/Exam: Per pt history and exam, this seems most like a migraine which is causing some left eye gaze palsy. Her neuro exam here was normal, equal strength bilaterally and sensation intact. There was some left eye gaze palsy on exam. Other than that, eye exam was normal, PERRLA. Will give Phenergan IM and Dilaudid 0.5mg IM and see if helps resolve. No IV fluids needed at this time as her vitals are stable and she was able to eat and drink this morning without vomiting. Departure - Departure Time of Disposition: 15:47 Disposition: Home, Self-Care 01 Condition: Good Clinical Impression: Migraine - Discharge Information Instructions: Recurrent Migraine Headache, [id number], Migraine Headache, [id number] Referrals: PCP,None [Primary Care Provider] - Forms: ED Department Discharge Follow up with Primary Care Doctor to get prescription for future migraines. W If symptoms worsen, return to ED. Care Plan Goals: Follow up with PCP for continued treatment of migraines. Take prescribed Maxalt 5mg every 2 hours for migraine relief. Do not exceed 2 doses in 24 hours.
[2018-03-28] MEDS ORDERED: Ondansetron 4 MG Tab.DIS PO ONE (13:46)
[2018-03-28] MEDS ORDERED: Promethazine 25 MG/ML SDV IM ONE (13:48)
[2018-03-28] MEDS ORDERED: HYDROmorphone 0.5 MG/0.5 ML SYRINGE IVPUSH ONE (14:48)
[2018-03-28] MEDS ORDERED: HYDROmorphone 0.5 MG/0.5 ML SYRINGE IM ONE (15:00)
== END 2018-03-28 17:26 | disposition home or self-care (01) ==
LOC: JD.ED 12:44
DX: G43.909 Migraine, unspecified, not intractable, without status migrainosus (principal); Z79.899 Other long term (current) drug therapy
CPT/HCPCS: 96372; 99283; J1170; J2550; 99284

== ENCOUNTER 2018-06-23 15:40 | Inpatient (IN) | payer BC ==
[2018-06-23] MEDS ORDERED: Sodium Chloride 0.9% 10 ML Syringe FLUSH PRN (16:04)
[2018-06-23] MEDS ORDERED: Ondansetron 4 MG/2 ML SDV IVPUSH ONE (16:05)
[2018-06-23] MEDS ORDERED: HYDROmorphone 0.5 MG/0.5 ML SYRINGE IVPUSH ONE (16:05)
[2018-06-23] MEDS ORDERED: Sodium Chloride 0.9% 1,000 ML IV SCH (16:15)
--- NOTE | 2018-06-23 16:21 | EDM.PDOC ---
ED HPI GENERAL MEDICAL PROBLEM - General Chief Complaint: Abdominal Pain Stated Complaint: PANCREATITIS NOT GETTING BETTER Time Seen by Provider: 06/23/18 15:49 Source of Information: Reports: Patient, Provider History Limitations: Reports: No Limitations - History of Present Illness INITIAL COMMENTS - FREE TEXT/NARRATIVE: The patient presents with abdominal pain, nausea, and vomiting. This all started Thursday 5 days ago. She came in to the ER on Thursday and had a complete work up that included labs and a CT of her abdomen and pelvis. Her WBC was normal. He lipase was elevated at 600 along with her liver enzymes. The CT showed inflammation near the duodenum and head of the pancreas. She was diagnosed with pancreatitis and put on something for pain and nausea. That has not helped and she returned to the clinic today and saw Nette Song. She did repeat labs and her WBC was still normal. Her lipase was normal and her liver enzymes were coming down. She ordered another CT and it showed slightly worsening inflammatory change inferior to the pancreas and duodenum. Findings on current exam suggest pancreatitis as a more likely etiology rather than duodenitis. Slightly enlarging cyst within the left ovary currently measuring 2.9 cm whick is felt to be incidental. She had fluids and dilaudid for pain but that is not helping. She came to the ER for possible admission. She has chills, cough, abdominal pain, nausea, and no diarrhea. Onset: Gradual Duration: Day(s): (5) Location: Reports: Abdomen Quality: Reports: Sharp Severity: Severe Improves with: Reports: None Worsens with: Reports: None Associated Symptoms: Reports: Fever/Chills, Nausea/Vomiting. Denies: Chest Pain , Cough, Headaches, Loss of Appetite, Shortness of Breath Treatments OCCUPATIONAL THERAPIST ASSISTANT: Reports: IV/IO Other Treatments OCCUPATIONAL THERAPIST ASSISTANT: dilaudid 0.5mg at 1430 Abdominal Pain Score (Numeric/FACES): 6 - Related Data Allergies Allergy/AdvReac Type Severity Reaction Status Date / Time No Known Allergies Allergy Verified 06/23/18 15:50 Home Meds: Home Meds Acetaminophen/oxyCODONE [Percocet 325-5 MG] 1 tab PO ASDIRECTED PRN 06/23/18 [ History] Ondansetron HCl [Zofran] 4 mg PO ASDIRECTED PRN 06/23/18 [History] Past Medical History HEENT History: Reports: Impaired Vision Respiratory History: Reports: Asthma Gastrointestinal History: Reports: Cholelithiasis [employer] History: Reports: Musculoskeletal History: Reports: Other (See Below) Other Musculoskeletal History: Accessory nebicular Neurological History: Reports: Migraines - Past Surgical History GI Surgical History: Reports: Appendectomy, Cholecystectomy Social & Family History - Family History Family Medical History: Noncontributory - Tobacco Use Smoking Status *Q: Never Smoker - Caffeine Use Caffeine Use: Reports: Coffee, Soda - Recreational Drug Use Recreational Drug Use: No - Living Situation & Occupation Living situation: Reports: , with Spouse, with Family (3 kids) Occupation: Unemployed ED ROS GENERAL - Review of Systems Review Of Systems: See Below Constitutional: Reports: Fever, Chills HEENT: Reports: No Symptoms Respiratory: Reports: No Symptoms Cardiovascular: Reports: No Symptoms Endocrine: Reports: No Symptoms GI/Abdominal: Reports: Abdominal Pain, Nausea. Denies: Diarrhea : Reports: No Symptoms Musculoskeletal: Reports: No Symptoms Skin: Reports: No Symptoms ED EXAM, GI/ABD - Physical Exam Exam: See Below Exam Limited By: No Limitations General Appearance: Alert, No Apparent Distress Ears: Normal External Exam Nose: Normal Inspection Head: Atraumatic, Normocephalic Neck: Normal Inspection Respiratory/Chest: No Respiratory Distress, Lungs Clear, Normal Breath Sounds Cardiovascular: Regular Rate, Rhythm, No Edema, No Murmur GI/Abdominal Exam: Soft, No Organomegaly, No Mass, Tender (Moderate upper abdominal pain) Extremities: Normal Inspection Course - Vital Signs Last Recorded V/S: Last Vital Signs Temp 99.3 F 06/23/18 15:51 Pulse 80 06/23/18 15:51 Resp 16 06/23/18 15:51 BP 139/85 06/23/18 15:51 Pulse Ox 100 06/23/18 15:51 - Orders/Labs/Meds Orders: Active Orders 24 hr Category Date Time Status Peripheral IV Care [RC] . DIRECTED Care 06/23/18 16:04 Active Sodium Chloride 0.9% [Normal Saline] 1,000 ml Med 06/23/18 16:15 Active IV ASDIRECTED Sodium Chloride 0.9% [Saline Flush] Med 06/23/18 16:04 Active 10 ml FLUSH ASDIRECTED PRN Peripheral IV Insertion Adult [OM.PC] Routine Oth 06/23/18 16:04 Ordered Medication Orders Sodium Chloride (Normal Saline) 1,000 mls @ 150 mls/hr IV ASDIRECTED AMELIA Last Admin: 06/23/18 16:12 Dose: 150 mls/hr Sodium Chloride (Saline Flush) 10 ml FLUSH ASDIRECTED PRN PRN Reason: Keep Vein Open Meds: Medications Generic Name Dose Route Start Last Admin Trade Name Freq PRN Reason Stop Dose Admin Sodium Chloride 1,000 mls @ 150 mls/hr 06/23/18 16:15 06/23/18 16:12 Normal Saline IV 150 mls/hr ASDIRECTED AMELIA Administration Sodium Chloride 10 ml 06/23/18 16:04 Saline Flush FLUSH ASDIRECTED PRN Keep Vein Open Discontinued Medications Generic Name Dose Route Start Last Admin Trade Name Freq PRN Reason Stop Dose Admin Hydromorphone HCl 0.5 mg 06/23/18 16:05 Dilaudid IVPUSH 06/23/18 16:06 ONETIME ONE Ondansetron HCl 4 mg 06/23/18 16:05 Zofran IVPUSH 06/23/18 16:06 ONETIME ONE - Re-Assessments/Exams Free Text/Narrative Re-Assessment/Exam: 06/23/18 16:22 I ordered an IV NS at 150ml/hr, zofran 4mg IV, and dilaudid 0.5mg IV. Her WBC was normal. Her CRP is elevated to 3. Her AST went down to 43 from 59. Her ALT is going down to 76 from 132. Her alk phos went up to 148 from 121. Her UA shows no UTI. Her lipase went down to normal. She has more inflammation on the CT. I feel she needs to be admitted. I called Dr Menendez and he agreed to the admission. Departure - Departure Time of Disposition: 16:25 Disposition: Refer to Observation Condition: Fair Clinical Impression: Nausea, Dehydration Pancreatitis Qualifiers: Chronicity: acute Pancreatitis type: unspecified pancreatitis type Acute pancreatitis complication: no infection or necrosis Qualified Code(s): K85.90 - Acute pancreatitis without necrosis or infection, unspecified - Discharge Information Referrals: Nette Song, [facility] [Primary Care Provider] - - My Orders Last 24 Hours: My Active Orders 06/23/18 16:04 Peripheral IV Care [RC] . DIRECTED Sodium Chloride 0.9% [Saline Flush] 10 ml FLUSH ASDIRECTED PRN Peripheral IV Insertion Adult [OM.PC] Routine 06/23/18 16:15 Sodium Chloride 0.9% [Normal Saline] 1,000 ml IV ASDIRECTED - Assessment/Plan Last 24 Hours: My Active Orders 06/23/18 16:04 Peripheral IV Care [RC] . DIRECTED Sodium Chloride 0.9% [Saline Flush] 10 ml FLUSH ASDIRECTED PRN Peripheral IV Insertion Adult [OM.PC] Routine 06/23/18 16:15 Sodium Chloride 0.9% [Normal Saline] 1,000 ml IV ASDIRECTED
--- NOTE | 2018-06-23 16:57 | PCM.HP ---
<Ligia Yañez - Last Filed: 06/23/18 17:22> H&P History of Present Illness - General Date of Service: 06/23/18 Source of Information: Patient History Limitations: Reports: No Limitations - History of Present Illness Initial Comments - Free Text/Narative: 28 y/o female admitted for pancreatitis. Symptoms started the morning of 06/19, when severe abdominal pain (10/10) awoke her from sleep. She said the pain was epigastric and radiating to her right side, described as severe, stabbing, and crampy. She initially thought she was constipated so she took stool softeners and pepto. She then had nausea and vomiting. Her symptoms persisted throughout Thursday and Thursday morning so she came to the ER on 06/20. She also started having diarrhea at that time, possibly due to the medication she took the day before. Initial work up displayed normal WBC, elevated lipase, and elevated liver enzymes. Abdominal CT showed inflammation near the duodenum and head of the pancreas. She was diagnosed with pancreatitis and put on zofran and dilaudid and sent home. Despite treatment, her symptoms have improved only slightly over the last few days and are still present and quite bothersome. She has been having difficulty sleeping and completing daily tasks. She saw her PCP Nette Song in the clinic earlier today 06/23. Repeat labs showed normal WBC, normal lipase, and liver enzymes coming down. Repeat CT showed slightly worsening inflammatory change inferior to the pancreas and duodenum. Slightly enlarging cyst within the left ovary currently measuring 2.9 cm was felt to be incidental. She then came to the ER for further workup and possible admission due to persistent symptoms. She was given fluids and dilaudid in the ER, which is helping somewhat but not as much as she'd like. Pain has decreased from 10/10 to 5/10. She will be admitted for further management of pancreatitis. Onset of Symptoms: Reports: Sudden Symptom Onset Date: 06/19/18 Symptom Onset Time: 03:00 Duration of Symptoms: Reports: Day(s):, Constant Location: Reports: Abdomen Quality: Reports: Sharp, Stabbing Severity: Severe Improves with: Reports: Rest Worsens with: Reports: Eating, Movement Associated Symptoms: Reports: Loss of Appetite Abdominal Pain Score (Numeric/FACES): 6 - Related Data Allergies/Adverse Reactions: Allergies Allergy/AdvReac Type Severity Reaction Status Date / Time No Known Allergies Allergy Verified 06/23/18 15:50 Home Medications: Home Meds Acetaminophen/Codeine [Tylenol with Codeine No.3 300MG/30MG] 1 tab PO Q4H PRN [History] Acetaminophen/oxyCODONE [Percocet 325-5 MG] 1 tab PO Q4H PRN 06/23/18 [History] Albuterol [Ventolin HFA] 2 puff INH ASDIRECTED PRN 06/23/18 [History] Cyclobenzaprine [Flexeril] 10 mg PO BEDTIME PRN 06/23/18 [History] Naproxen 500 mg PO Q12H PRN 06/23/18 [History] Ondansetron HCl [Zofran] 4 mg PO Q4HR PRN 06/23/18 [History] Rizatriptan Benzoate [Rizatriptan] 5 mg PO ASDIRECTED 06/23/18 [History] Past Medical History HEENT History: Reports: Impaired Vision Respiratory History: Reports: Asthma Gastrointestinal History: Reports: Cholelithiasis AIDS 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: Musculoskeletal History: Reports: Other (See Below) Other Musculoskeletal History: Accessory nebicular Neurological History: Reports: Migraines - Past Surgical History GI Surgical History: Reports: Appendectomy, Cholecystectomy Social & Family History - Family History Family Medical History: Noncontributory Respiratory: Reports: COPD (father, PGF) Musculoskeletal: Reports: Fibromyalgia (mother, MGM, PGM) Oncologic: Reports: Breast (PGM), Cervix (mother, MGM) - Tobacco Use Smoking Status *Q: Never Smoker - Caffeine Use Caffeine Use: Reports: Coffee, Soda - Alcohol Use Alcohol Use History: Yes Alcohol Use Frequency: Rarely (~one drink per year) - Recreational Drug Use Recreational Drug Use: No Drug Use in Last 12 Months: No - Living Situation & Occupation Living situation: Reports: , with Spouse, with Family (3 kids) Occupation: Unemployed H&P Review of Systems - Review of Systems: Review Of Systems: See Below General: Reports: No Symptoms HEENT: Reports: No Symptoms Pulmonary: Reports: No Symptoms Cardiovascular: Reports: No Symptoms Gastrointestinal: Reports: Abdominal Pain, Decreased Appetite, Nausea, Vomiting Genitourinary: Reports: Pain (right pelvic pain) Musculoskeletal: Reports: Back Pain, Leg Pain Skin: Reports: No Symptoms Neurological: Reports: No Symptoms Hematologic/Lymphatic: Reports: No Symptoms Immunologic: Reports: No Symptoms Review of Systems Comment:: Patient states she is having severe abdominal pain, nausea, and vomiting. She reports decreased appetite as eating makes her pain worse. Pain is also worse with movement, coughing, and laughing. She also has some pain in her right pelvic region, back, and legs. Pain improves somewhat with rest and dilaudid. Exam - Exam Exam: See Below - Vital Signs Vital Signs: Last Vital Signs Temp 99.3 F 06/23/18 15:51 Pulse 80 06/23/18 15:51 Resp 16 06/23/18 15:51 BP 139/85 06/23/18 15:51 Pulse Ox 100 06/23/18 15:51 Weight: 82.554 kg - Exam General: Alert, Oriented, Cooperative, Moderate Distress HEENT: Conjunctiva Clear, EOMI, Hearing Intact, Mucosa Moist & [place], Pupils Equal, Pupils Reactive Neck: Supple, Trachea Midline Lungs: Clear to Auscultation, Normal Respiratory Effort Cardiovascular: Regular Rate, Regular Rhythm GI/Abdominal Exam: Guarding, Tender, Abnormal Bowel Sounds (Female) Exam: Deferred Rectal (Female) Exam: Deferred Extremities: Normal Inspection, Non-Tender, No Pedal Edema Peripheral Pulses: 2+: Radial (L), Radial (R), Posterior Tibial (L), Posterior Tibial (R) Skin: Warm, Dry, Intact Neuro Extensive - Mental Status: Alert, Oriented x3, Normal Mood/Affect, Normal Cognition, Memory Intact Psychiatric: Alert, Normal Affect, Normal Mood Physical Exam Comments:: Patient appears to be in pain. She is pleasant and cooperative. She has significant pain with light palpation to abdomen, primarily in RUQ and epigastric region. Excessive bowel sounds. No other abnormalities noted. - Problem List (1) Pancreatitis SNOMED Code(s): 22811197 ICD Code: K85.90 - ACUTE PANCREATITIS WITHOUT NECROSIS OR INFECTION, UNSP Status: Acute Current Visit: No Qualifiers: Chronicity: acute Pancreatitis type: unspecified pancreatitis type Acute pancreatitis complication: no infection or necrosis Qualified Code(s): K85.90 - Acute pancreatitis without necrosis or infection, unspecified Problem List Initiated/Reviewed/Updated: Yes Orders Last 24hrs: Active Orders 24 hr Category Date Time Status Peripheral IV Care [RC] . DIRECTED Care 06/23/18 16:04 Active Sodium Chloride 0.9% [Normal Saline] 1,000 ml Med 06/23/18 16:15 Active IV ASDIRECTED Sodium Chloride 0.9% [Saline Flush] Med 06/23/18 16:04 Active 10 ml FLUSH ASDIRECTED PRN Peripheral IV Insertion Adult [OM.PC] Routine Oth 06/23/18 16:04 Ordered Medication Orders Sodium Chloride (Normal Saline) 1,000 mls @ 150 mls/hr IV ASDIRECTED AMELIA Last Admin: 06/23/18 16:12 Dose: 150 mls/hr Sodium Chloride (Saline Flush) 10 ml FLUSH ASDIRECTED PRN PRN Reason: Keep Vein Open Last Admin: 06/23/18 16:21 Dose: 10 ml Assessment/Plan Comment:: Acute pancreatitis * Diagnosis consistent with presentation, labs, and abdominal CT * Severe epigastric abdominal pain worse with eating and movement * 06/20 - lipase elevated at 600 on 06/20; liver enzymes also elevated * 06/23 - lipase is normal at 133, AST elevated at 43, ALT elevated at 76, and alkaline phosphatase elevated at 148 * CRP elevated at 3; ESR elevated at 23 * Abdominal CT showed inflammation of the pancreas and duodenum; left ovary cyst thought to be incidental * Etiology unknown * Denies alcohol use, drug use, abdominal trauma * She had a cholecystectomy in 2009 for gallstones * Calcium normal at 8.8 * Obese; BMI > 30 * Triglycerides pending * Natalie criteria * Glucose > 200 = NO * Age > 55 = NO * LDH > 350 = pending * AST > 250 = NO * WBC > 16,000 = NO * <3 criteria = 1% mortality * Management * HCG to r/o * IVF to avoid volume depletion * Dilaudid PRN for pain control * Broad-spectrum antibiotics Ligia Yañez MS-3. Dr. Menendez has examined the patient and reviewed the note. <Riri Menendez T - Last Filed: 06/24/18 12:58> H&P History of Present Illness - General Admit Problem/Dx: Admission Diagnosis/Problem Admission Diagnosis/Problem Pancreatitis Exam - Vital Signs Vital Signs: Last Vital Signs Temp 36.4 C 06/24/18 07:54 Pulse 68 06/24/18 07:54 Resp 18 06/24/18 07:54 BP 116/61 06/24/18 07:54 Pulse Ox 100 06/24/18 07:54 - Patient Data Lab Results Last 24 hrs: Laboratory Results - last 24 hr 06/23/18 06/23/18 06/24/18 Range/Units 08:30 15:33 06:40 WBC 7.84 (3.98-10.04) K/mm3 RBC 4.11 (3.98-5.22) M/mm3 Hgb 12.7 (11.2-15.7) gm/L Hct 37.1 (34.1-44.9) % MCV 90.3 (79.4-94.8) fl MCH 30.9 (25.6-32.2) pg MCHC 34.2 (32.2-35.5) g/dl RDW Std Deviation 36.2 L (36.4-46.3) fL Plt Count 305 (182-369) K/mm3 MPV 9.3 L (9.4-12.3) fl Neut % (Auto) 80.8 H (34.0-71.1) % Lymph % (Auto) 14.2 L (19.3-51.7) % [place] % (Auto) 3.6 L (4.7-12.5) % Eos % (Auto) 1.3 (0.7-5.8) Baso % (Auto) 0.1 (0.1-1.2) % Neut # (Auto) 6.34 H (1.56-6.13) K/mm3 Lymph # (Auto) 1.11 L (1.18-3.74) K/mm3 [place] # (Auto) 0.28 (0.24-0.36) K/mm3 Eos # (Auto) 0.10 (0.04-0.36) K/mm3 Baso # (Auto) 0.01 (0.01-0.08) K/mm3 Sodium (136-145) mEq/L Potassium (3.5-5.1) mEq/L Chloride (98-107) mEq/L Carbon Dioxide (21-32) mEq/L Anion Gap (5-15) BUN (7-18) mg/dL Creatinine (0.55-1.02) mg/dL Est Cr Clr Drug Dosing mL/min Estimated GFR (MDRD) (>60) mL/min BUN/Creatinine Ratio (14-18) Glucose (74-106) mg/dL Calcium (8.5-10.1) mg/dL Magnesium (1.8-2.4) mg/dl Lactate Dehydrogenase 252 H (81-234) U/L C-Reactive Protein (<1.0) mg/dL Triglycerides 64 (<150) mg/dL Urine HCG, Qual Negative (NEGATIVE) 06/24/18 Range/Units 06:40 WBC (3.98-10.04) K/mm3 RBC (3.98-5.22) M/mm3 Hgb (11.2-15.7) gm/L Hct (34.1-44.9) % MCV (79.4-94.8) fl MCH (25.6-32.2) pg MCHC (32.2-35.5) g/dl RDW Std Deviation (36.4-46.3) fL Plt Count (182-369) K/mm3 MPV (9.4-12.3) fl Neut % (Auto) (34.0-71.1) % Lymph % (Auto) (19.3-51.7) % [place] % (Auto) (4.7-12.5) % Eos % (Auto) (0.7-5.8) Baso % (Auto) (0.1-1.2) % Neut # (Auto) (1.56-6.13) K/mm3 Lymph # (Auto) (1.18-3.74) K/mm3 [place] # (Auto) (0.24-0.36) K/mm3 Eos # (Auto) (0.04-0.36) K/mm3 Baso # (Auto) (0.01-0.08) K/mm3 Sodium 138 (136-145) mEq/L Potassium 4.2 (3.5-5.1) mEq/L Chloride 105 (98-107) mEq/L Carbon Dioxide 23 (21-32) mEq/L Anion Gap 14.2 (5-15) BUN 6 L (7-18) mg/dL Creatinine 0.6 (0.55-1.02) mg/dL Est Cr Clr Drug Dosing 126.73 mL/min Estimated GFR (MDRD) > 60 (>60) mL/min BUN/Creatinine Ratio 10.0 L (14-18) Glucose 71 L (74-106) mg/dL Calcium 8.9 (8.5-10.1) mg/dL Magnesium 1.6 L (1.8-2.4) mg/dl Lactate Dehydrogenase (81-234) U/L C-Reactive Protein 2.0 H* (<1.0) mg/dL Triglycerides (<150) mg/dL Urine HCG, Qual (NEGATIVE) Result Diagrams: 06/24/18 06:40 06/24/18 06:40 Orders Last 24hrs: Active Orders 24 hr Category Date Time Status Patient Status [ADT] Routine ADT 06/23/18 16:49 Active Height and Weight [RC] 04 Care 06/23/18 17:07 Active Intake and Output [RC] ,16 Care 06/23/18 17:08 Active Up ad Dorina [RC] ASDIRECTED Care 06/24/18 06:43 Active VTE/DVT Education [RC] Care 06/23/18 17:07 Active Vital Signs [RC] Q4HR Care 06/23/18 17:07 Active Consult to Case Management/Rn Spine [CONS] Cons 06/23/18 17:07 Active Routine Soft Diet [DIET] Diet 06/24/18 Lunch Active BASIC METABOLIC PANEL,BMP [CHEM] AM Lab 06/25/18 05:11 Ordered BASIC METABOLIC PANEL,BMP [CHEM] AM Lab 06/26/18 05:11 Ordered BASIC METABOLIC PANEL,BMP [CHEM] AM Lab 06/27/18 05:11 Ordered BASIC METABOLIC PANEL,BMP [CHEM] AM Lab 06/28/18 05:11 Ordered C-REACTIVE PROTEIN [CHEM] AM Lab 06/25/18 05:11 Ordered C-REACTIVE PROTEIN [CHEM] AM Lab 06/26/18 05:11 Ordered C-REACTIVE PROTEIN [CHEM] AM Lab 06/27/18 05:11 Ordered C-REACTIVE PROTEIN [CHEM] AM Lab 06/28/18 05:11 Ordered CBC WITH AUTO DIFF [HEME] AM Lab 06/25/18 05:11 Ordered CBC WITH AUTO DIFF [HEME] AM Lab 06/26/18 05:11 Ordered CBC WITH AUTO DIFF [HEME] AM Lab 06/27/18 05:11 Ordered CBC WITH AUTO DIFF [HEME] AM Lab 06/28/18 05:11 Ordered MAGNESIUM [CHEM] AM Lab 06/25/18 05:11 Ordered MAGNESIUM [CHEM] AM Lab 06/26/18 05:11 Ordered MAGNESIUM [CHEM] AM Lab 06/27/18 05:11 Ordered MAGNESIUM [CHEM] AM Lab 06/28/18 05:11 Ordered Acetaminophen [Tylenol] Med 06/23/18 17:07 Active 650 mg PO Q4H PRN Acetaminophen/Codeine [Tylenol with Codeine No.3 300MG/ Med 06/23/18 22:26 Active 30MG] 1 tab PO Q4H PRN Acetaminophen/oxyCODONE [Percocet 325-5 MG] Med 06/23/18 22:28 Active 1 tab PO Q4H PRN Albuterol [Proventil HFA] Med 06/23/18 22:26 Active 0 gm INH ASDIRECTED PRN Albuterol/Ipratropium [DuoNeb 3.0-0.5 MG/3 ML] Med 06/23/18 17:07 Active 3 ml NEB Q4H PRN Cyclobenzaprine [Flexeril] Med 06/23/18 22:26 Active 10 mg PO BEDTIME PRN Famotidine [Pepcid] Med 06/24/18 09:00 Active 20 mg PO BID HYDROmorphone [Dilaudid] Med 06/23/18 17:07 Active 0.5 mg IVPUSH Q4H PRN LORazepam [Ativan] Med 06/23/18 17:07 Active 1 mg IV Q6H PRN LORazepam [Ativan] Med 06/23/18 17:06 Active 2 mg IVPUSH Q4H PRN Lactated Ringers [Ringers, Lactated] 1,000 ml Med 06/23/18 17:15 Active IV ASDIRECTED Levofloxacin/Dextrose 5%-Water [Levaquin in D5W 500 MG/ Med 06/24/18 12:00 Active 100 ML] 500 mg Premix Bag 1 bag IV Q24H Magnesium Rep Pharmacy to Dose [Pharmacy to Dose - Med 06/23/18 17:15 Active Magnesium Replacement] 0 dose .XX ASDIRECTED PRN Metoprolol Tartrate [Lopressor] Med 06/23/18 17:06 Active 5 mg IVPUSH Q4H PRN Naproxen [Naprosyn] Med 06/23/18 22:26 Active 500 mg PO Q12H PRN Nicotine [Habitrol] Med 06/23/18 17:06 Active 21 mg TRDERM DAILY PRN Ondansetron [Zofran] Med 06/23/18 17:07 Active 4 mg IV Q6H PRN Patient's Own Medication [Ptom] Med 06/24/18 07:30 Active 0 each PO ASDIRECTED PRN Potassium Rep Pharmacy to Dose [Pharmacy to Dose - Med 06/23/18 17:15 Active Potassium Replacement] 0 dose .XX ASDIRECTED PRN Promethazine [Phenergan] 12.5 mg Med 06/23/18 17:07 Active Sodium Chloride 0.9% [Normal Saline] 50 ml IV Q6H SUMAtriptan [Imitrex] Med 06/24/18 11:53 Active 50 mg PO Q2H PRN Scopolamine [Transderm-Scop] Med 06/23/18 18:04 Active 1.5 mg TRDERM Q72H PRN Sodium Chloride 0.9% [Saline Flush] Med 06/23/18 16:04 Active 10 ml FLUSH ASDIRECTED PRN Temazepam [Restoril] Med 06/23/18 17:07 Active 15 mg PO BEDTIME PRN hydrALAZINE [Apresoline] Med 06/23/18 17:06 Active 20 mg IVPUSH Q4H PRN Peripheral IV Insertion Adult [OM.PC] Routine Oth 06/23/18 16:04 Ordered Sequential Compression Device [OM.PC] Per Unit Routine Oth 06/23/18 17:08 Ordered Resuscitation Status Routine Resus Stat 06/23/18 17:07 Ordered Medication Orders Acetaminophen (Tylenol) 650 mg PO Q4H PRN PRN Reason: Pain (Mild 1-3)/fever Acetaminophen/Codeine Phosphate (Tylenol With Codeine No.3 300mg/30mg) 1 tab PO Q4H PRN PRN Reason: Pain Last Admin: 06/24/18 00:19 Dose: 1 tab Albuterol (Proventil Hfa) 0 gm INH ASDIRECTED PRN PRN Reason: Shortness of Breath Albuterol/Ipratropium (Duoneb 3.0-0.5 Mg/3 Ml) 3 ml NEB Q4H PRN PRN Reason: Shortness Of Breath/wheezing Cyclobenzaprine HCl (Flexeril) 10 mg PO BEDTIME PRN PRN Reason: Muscle Spasm Famotidine (Pepcid) 20 mg PO BID [facility] Last Admin: 06/24/18 09:41 Dose: 20 mg Hydralazine HCl (Apresoline) 20 mg IVPUSH Q4H PRN PRN Reason: Hypertension Hydromorphone HCl (Dilaudid) 0.5 mg IVPUSH Q4H PRN PRN Reason: Pain (severe 7-10) Last Admin: 06/23/18 18:27 Dose: 0.5 mg Lactated Ringer's (Ringers, Lactated) 1,000 mls @ 125 mls/hr IV ASDIRECTED [facility] Last Admin: 06/24/18 06:39 Dose: 125 mls/hr Infusion: 06/24/18 06:39 Dose: 125 mls/hr Admin: 06/23/18 22:53 Dose: 125 mls/hr Levofloxacin/Dextrose 500 mg/ (Premix) 100 mls @ 100 mls/hr IV Q24H [facility] Last Admin: 06/24/18 12:13 Dose: 100 mls/hr Promethazine HCl 12.5 mg/ (Sodium Chloride) 50.5 mls @ 100 mls/hr IV Q6H PRN PRN Reason: Nausea/Vomiting Lorazepam (Ativan) 2 mg IVPUSH Q4H PRN PRN Reason: Seizures Lorazepam (Ativan) 1 mg IV Q6H PRN PRN Reason: Anxiety Magnesium Sulfate (Pharmacy To Dose - Magnesium Replacement) 0 dose .XX ASDIRECTED PRN PRN Reason: RX TO WATCH MAG LEVELS Metoprolol Tartrate (Lopressor) 5 mg IVPUSH Q4H PRN PRN Reason: Tachycardia Naproxen (Naprosyn) 500 mg PO Q12H PRN PRN Reason: Pain Last Admin: 06/24/18 10:22 Dose: 500 mg Nicotine (Habitrol) 21 mg TRDERM DAILY PRN PRN Reason: Nicotine Dependence Ondansetron HCl (Zofran) 4 mg IV Q6H PRN PRN Reason: Nausea/Vomiting Last Admin: 06/24/18 12:22 Dose: 4 mg Admin: 06/24/18 03:52 Dose: 4 mg Admin: 09/12/18 20:31 Dose: 4 mg Oxycodone/Acetaminophen (Percocet 325-5 Mg) 1 tab PO Q4H PRN PRN Reason: Pain Rizatriptan 5 Mg ( (Maxalt)) 0 each PO ASDIRECTED PRN PRN Reason: Headache Potassium Chloride (Pharmacy To Dose - Potassium Replacement) 0 dose .XX ASDIRECTED PRN PRN Reason: RX TO WATCH K LEVELS Scopolamine (Transderm-Scop) 1.5 mg TRDERM Q72H PRN PRN Reason: Nausea Last Admin: 06/23/18 18:20 Dose: 1.5 mg Sodium Chloride (Saline Flush) 10 ml FLUSH ASDIRECTED PRN PRN Reason: Keep Vein Open Last Admin: 06/23/18 16:21 Dose: 10 ml Sumatriptan Succinate (Imitrex) 50 mg PO Q2H PRN PRN Reason: Migraine Temazepam (Restoril) 15 mg PO BEDTIME PRN PRN Reason: Sleep Assessment/Plan Comment:: The patient was seen and examined at bedside in concert with the medical student. The admission assessment and plans were discussed and agreed upon with me. The etiology of her acute pancreatitis is unclear at this point. We will order LDH and Trig level to assess Natalie's criteria. DDx: Ruptured Ovarian Cyst and other Gynecological Issues. She will otherwise received IV antibiotic.
[2018-06-23] MEDS ORDERED: Metoprolol Tartrate 5 MG/5 ML SDV IVPUSH PRN (17:06)
[2018-06-23] MEDS ORDERED: LORazepam 2 MG/ML SDV IVPUSH PRN (17:06)
[2018-06-23] MEDS ORDERED: hydrALAZINE 20 MG/ML SDV IVPUSH PRN (17:06)
[2018-06-23] MEDS ORDERED: Nicotine 21 MG/24 Hr Patch TRDERM PRN (17:06)
[2018-06-23] MEDS ORDERED: LORazepam 2 MG/ML SDV IV PRN (17:07)
[2018-06-23] MEDS ORDERED: Acetaminophen 325 MG Tab PO PRN (17:07)
[2018-06-23] MEDS ORDERED: HYDROmorphone 0.5 MG/0.5 ML Syringe IVPUSH PRN (17:07)
[2018-06-23] MEDS ORDERED: Albuterol/Ipratropium 3.0-0.5 MG/3 ML Neb Soln NEB PRN (17:07)
[2018-06-23] MEDS ORDERED: Temazepam 15 MG Cap PO PRN (17:07)
[2018-06-23] MEDS ORDERED: Acetaminophen/oxyCODONE 325-5 MG Tab PO PRN ×2 (17:07→22:28)
[2018-06-23] MEDS ORDERED: Promethazine 12.5 MG in Sodium Chloride 0.9% 50 ML IV PRN (17:07)
[2018-06-23] MEDS ORDERED: Levofloxacin/Dextrose 5%-Water 500 MG in Premix Bag 1 BAG IV ONE (17:11)
[2018-06-23] MEDS ORDERED: Pneumococcal Polyvalent-23 Vaccine 0.5 ML SDV IM ONE (17:42)
[2018-06-23] MEDS ORDERED: Scopolamine 1.5 MG Transdermal Patch TRDERM PRN (18:04)
[2018-06-23] MEDS: Potassium Chloride 20 MEQ Tab.ER PO SCH ×2 (18:15→21:48)
[2018-06-23] MEDS: Ondansetron 4 MG/2 ML SDV IV PRN (20:31)
[2018-06-23] MEDS ORDERED: Albuterol 6.7 GM Inhaler INH PRN (22:26)
[2018-06-23] MEDS ORDERED: Acetaminophen/Codeine 300-30 MG Tab PO PRN (22:26)
[2018-06-23] MEDS ORDERED: Cyclobenzaprine 10 MG Tab PO PRN (22:26)
[2018-06-23] MEDS ORDERED: Naproxen 500 MG Tab PO PRN (22:26)
[2018-06-23] MEDS ORDERED: RIZATRIPTAN 5 MG PO SCH (22:30)
[2018-06-23] MEDS: Lactated Ringers 1,000 ML IV SCH (22:53)
[2018-06-24] MEDS: Ondansetron 4 MG/2 ML SDV IV PRN ×2 (03:52→12:22)
[2018-06-24] MEDS: Lactated Ringers 1,000 ML IV SCH ×2 (06:39→16:36)
[2018-06-24] MEDS ORDERED: RIZATRIPTAN 5 MG PO PRN (07:30)
[2018-06-24] MEDS ORDERED: Magnesium Sulfate/Water 2 GM in Premix Bag 1 BAG IV ONE (09:00)
[2018-06-24] MEDS ORDERED: Famotidine 20 MG Tab PO SCH (09:00)
--- NOTE | 2018-06-24 10:03 | PCM.PN ---
<Ligia Yañez - Last Filed: 06/24/18 11:11> - General Info Date of Service: 06/24/18 Admission Dx/Problem (Free Text): Pancreatitis Functional Status: Reports: Pain Controlled, Tolerating Diet, Ambulating, Urinating Pain Score: 1 - Review of Systems General: Reports: Fatigue (mild) HEENT: Reports: Headaches (mild) Pulmonary: Reports: No Symptoms Cardiovascular: Reports: No Symptoms Gastrointestinal: Reports: Abdominal Pain (mild, improved), Other (heartburn) Genitourinary: Reports: No Symptoms Musculoskeletal: Reports: No Symptoms Skin: Reports: No Symptoms Neurological: Reports: No Symptoms Psychiatric: Reports: No Symptoms Systems Review Comment:: Patient states she is doing much better today. Abdominal pain is much improved - now only 10/21. She denies nausea, vomiting, and diarrhea. Her appetite has returned and she wants to advance from liquid diet to solid diet. She did have heartburn earlier today, resolved with pepcid. She has been ambulating without pain. She does report a mild headache and some fatigue which she says is due to poor sleep last night. She otherwise has had no issues. - Patient Data Vitals - Most Recent: Last Vital Signs Temp 97.5 F 06/24/18 07:54 Pulse 68 06/24/18 07:54 Resp 18 06/24/18 07:54 BP 116/61 06/24/18 07:54 Pulse Ox 100 06/24/18 07:54 Weight - Most Recent: 82.372 kg I&O - Last 24 Hours: Intake & Output 06/23/18 06/24/18 06/24/18 22:59 06:59 14:59 Intake Total 1775 Output Total 900 Balance 875 Lab Results Last 24 Hours: Laboratory Results - last 24 hr 06/23/18 06/23/18 06/24/18 Range/Units 08:30 15:33 06:40 WBC 7.84 (3.98-10.04) K/mm3 RBC 4.11 (3.98-5.22) M/mm3 Hgb 12.7 (11.2-15.7) gm/L Hct 37.1 (34.1-44.9) % MCV 90.3 (79.4-94.8) fl MCH 30.9 (25.6-32.2) pg MCHC 34.2 (32.2-35.5) g/dl RDW Std Deviation 36.2 L (36.4-46.3) fL Plt Count 305 (182-369) K/mm3 MPV 9.3 L (9.4-12.3) fl Neut % (Auto) 80.8 H (34.0-71.1) % Lymph % (Auto) 14.2 L (19.3-51.7) % [place] % (Auto) 3.6 L (4.7-12.5) % Eos % (Auto) 1.3 (0.7-5.8) Baso % (Auto) 0.1 (0.1-1.2) % Neut # (Auto) 6.34 H (1.56-6.13) K/mm3 Lymph # (Auto) 1.11 L (1.18-3.74) K/mm3 [place] # (Auto) 0.28 (0.24-0.36) K/mm3 Eos # (Auto) 0.10 (0.04-0.36) K/mm3 Baso # (Auto) 0.01 (0.01-0.08) K/mm3 Sodium (136-145) mEq/L Potassium (3.5-5.1) mEq/L Chloride (98-107) mEq/L Carbon Dioxide (21-32) mEq/L Anion Gap (5-15) BUN (7-18) mg/dL Creatinine (0.55-1.02) mg/dL Est Cr Clr Drug Dosing mL/min Estimated GFR (MDRD) (>60) mL/min BUN/Creatinine Ratio (14-18) Glucose (74-106) mg/dL Calcium (8.5-10.1) mg/dL Magnesium (1.8-2.4) mg/dl Lactate Dehydrogenase 252 H (81-234) U/L C-Reactive Protein (<1.0) mg/dL Triglycerides 64 (<150) mg/dL Urine HCG, Qual Negative (NEGATIVE) 06/24/18 Range/Units 06:40 WBC (3.98-10.04) K/mm3 RBC (3.98-5.22) M/mm3 Hgb (11.2-15.7) gm/L Hct (34.1-44.9) % MCV (79.4-94.8) fl MCH (25.6-32.2) pg MCHC (32.2-35.5) g/dl RDW Std Deviation (36.4-46.3) fL Plt Count (182-369) K/mm3 MPV (9.4-12.3) fl Neut % (Auto) (34.0-71.1) % Lymph % (Auto) (19.3-51.7) % [place] % (Auto) (4.7-12.5) % Eos % (Auto) (0.7-5.8) Baso % (Auto) (0.1-1.2) % Neut # (Auto) (1.56-6.13) K/mm3 Lymph # (Auto) (1.18-3.74) K/mm3 [place] # (Auto) (0.24-0.36) K/mm3 Eos # (Auto) (0.04-0.36) K/mm3 Baso # (Auto) (0.01-0.08) K/mm3 Sodium 138 (136-145) mEq/L Potassium 4.2 (3.5-5.1) mEq/L Chloride 105 (98-107) mEq/L Carbon Dioxide 23 (21-32) mEq/L Anion Gap 14.2 (5-15) BUN 6 L (7-18) mg/dL Creatinine 0.6 (0.55-1.02) mg/dL Est Cr Clr Drug Dosing 126.73 mL/min Estimated GFR (MDRD) > 60 (>60) mL/min BUN/Creatinine Ratio 10.0 L (14-18) Glucose 71 L (74-106) mg/dL Calcium 8.9 (8.5-10.1) mg/dL Magnesium 1.6 L (1.8-2.4) mg/dl Lactate Dehydrogenase (81-234) U/L C-Reactive Protein 2.0 H* (<1.0) mg/dL Triglycerides (<150) mg/dL Urine HCG, Qual (NEGATIVE) Med Orders - Current: Current Medications Acetaminophen (Tylenol) 650 mg PO Q4H PRN PRN Reason: Pain (Mild 1-3)/fever Acetaminophen/Codeine Phosphate (Tylenol With Codeine No.3 300mg/30mg) 1 tab PO Q4H PRN PRN Reason: Pain Last Admin: 06/24/18 00:19 Dose: 1 tab Albuterol (Proventil Hfa) 0 gm INH ASDIRECTED PRN PRN Reason: Shortness of Breath Albuterol/Ipratropium (Duoneb 3.0-0.5 Mg/3 Ml) 3 ml NEB Q4H PRN PRN Reason: Shortness Of Breath/wheezing Cyclobenzaprine HCl (Flexeril) 10 mg PO BEDTIME PRN PRN Reason: Muscle Spasm Famotidine (Pepcid) 20 mg PO BID AMELIA Last Admin: 06/24/18 09:41 Dose: 20 mg Hydralazine HCl (Apresoline) 20 mg IVPUSH Q4H PRN PRN Reason: Hypertension Hydromorphone HCl (Dilaudid) 0.5 mg IVPUSH Q4H PRN PRN Reason: Pain (severe 7-10) Last Admin: 06/23/18 18:27 Dose: 0.5 mg Lactated Ringer's (Ringers, Lactated) 1,000 mls @ 125 mls/hr IV ASDIRECTED AMELIA Last Admin: 06/24/18 06:39 Dose: 125 mls/hr Levofloxacin/Dextrose 500 mg/ (Premix) 100 mls @ 100 mls/hr IV Q24H [facility] Promethazine HCl 12.5 mg/ (Sodium Chloride) 50.5 mls @ 100 mls/hr IV Q6H PRN PRN Reason: Nausea/Vomiting Magnesium Sulfate 2 gm/ Premix 50 mls @ 25 mls/hr IV ONETIME ONE Stop: 06/24/18 10:59 Last Admin: 06/24/18 09:41 Dose: 25 mls/hr Lorazepam (Ativan) 2 mg IVPUSH Q4H PRN PRN Reason: Seizures Lorazepam (Ativan) 1 mg IV Q6H PRN PRN Reason: Anxiety Magnesium Sulfate (Pharmacy To Dose - Magnesium Replacement) 0 dose .XX ASDIRECTED PRN PRN Reason: RX TO WATCH MAG LEVELS Metoprolol Tartrate (Lopressor) 5 mg IVPUSH Q4H PRN PRN Reason: Tachycardia Naproxen (Naprosyn) 500 mg PO Q12H PRN PRN Reason: Pain Nicotine (Habitrol) 21 mg TRDERM DAILY PRN PRN Reason: Nicotine Dependence Ondansetron HCl (Zofran) 4 mg IV Q6H PRN PRN Reason: Nausea/Vomiting Last Admin: 06/24/18 03:52 Dose: 4 mg Oxycodone/Acetaminophen (Percocet 325-5 Mg) 1 tab PO Q4H PRN PRN Reason: Pain Rizatriptan 5 Mg ( (Maxalt)) 0 each PO ASDIRECTED PRN PRN Reason: Headache Potassium Chloride (Pharmacy To Dose - Potassium Replacement) 0 dose .XX ASDIRECTED PRN PRN Reason: RX TO WATCH K LEVELS Scopolamine (Transderm-Scop) 1.5 mg TRDERM Q72H PRN PRN Reason: Nausea Last Admin: 06/23/18 18:20 Dose: 1.5 mg Sodium Chloride (Saline Flush) 10 ml FLUSH ASDIRECTED PRN PRN Reason: Keep Vein Open Last Admin: 06/23/18 16:21 Dose: 10 ml Temazepam (Restoril) 15 mg PO BEDTIME PRN PRN Reason: Sleep Discontinued Medications Hydromorphone HCl (Dilaudid) 0.5 mg IVPUSH ONETIME ONE Stop: 06/23/18 16:06 Last Admin: 06/23/18 16:18 Dose: 0.5 mg Sodium Chloride (Normal Saline) 1,000 mls @ 150 mls/hr IV ASDIRECTED [facility] Stop: 06/24/18 22:54 Last Admin: 06/23/18 16:12 Dose: 150 mls/hr Levofloxacin/Dextrose 500 mg/ (Premix) 100 mls @ 100 mls/hr IV ONETIME ONE Stop: 06/23/18 18:10 Last Admin: 06/23/18 18:14 Dose: 100 mls/hr Ondansetron HCl (Zofran) 4 mg IVPUSH ONETIME ONE Stop: 06/23/18 16:06 Last Admin: 06/23/18 16:15 Dose: 4 mg Oxycodone/Acetaminophen (Percocet 325-5 Mg) 1 tab PO ASDIRECTED PRN PRN Reason: Breakthrough Pain Rizatriptan 5 Mg ( (Maxalt)) 0 each PO ASDIRECTED [facility] Pneumococcal Polyvalent Vaccine (Pneumovax 23) 0.5 ml IM .ONCE ONE Stop: 06/23/18 17:43 Potassium Chloride (Klor-Con M20) 40 meq PO Q4H [facility]ELIA Stop: 06/23/18 21:46 Last Admin: 06/23/18 21:48 Dose: 40 meq - Exam General: Alert, Oriented, Cooperative, No Acute Distress HEENT: Pupils Equal, Pupils Reactive, EOMI, Mucous Membr. Moist/[place] Neck: Supple, Trachea Midline Lungs: Clear to Auscultation, Normal Respiratory Effort Cardiovascular: Regular Rate, Regular Rhythm GI/Abdominal Exam: Normal Bowel Sounds, Soft, Tender (mild, improved) (Female) Exam: Deferred Extremities: Normal Inspection, Normal Range of Motion, Non-Tender, No Pedal Edema Peripheral Pulses: 2+: Radial (L), Radial (R), Posterior Tibial (L), Posterior Tibial (R) Skin: Warm, Dry, Intact Neurological: No New Focal Deficit Psy/Mental Status: Alert, Normal Affect, Normal Mood Physical Findings Comments:: Patient appears to be doing much better today. She is cooperative, comfortable, and in no apparent distress. She has mild epigastric discomfort with deep palpation to the abdomen. No other abnormalities noted upon exam. - Problem List & Annotations (1) Pancreatitis SNOMED Code(s): 29485206 Code(s): K85.90 - ACUTE PANCREATITIS WITHOUT NECROSIS OR INFECTION, UNSP Status: Acute Current Visit: No Qualifiers: Chronicity: acute Pancreatitis type: unspecified pancreatitis type Acute pancreatitis complication: no infection or necrosis Qualified Code(s): K85.90 - Acute pancreatitis without necrosis or infection, unspecified (2) Hypomagnesemia SNOMED Code(s): 524139561 Code(s): E83.42 - HYPOMAGNESEMIA Status: Acute Current Visit: Yes (3) Pyrosis SNOMED Code(s): 78162104 Code(s): R12 - HEARTBURN Status: Acute Current Visit: Yes - Problem List Review Problem List Initiated/Reviewed/Updated: Yes - Plan Plan:: Acute pancreatitis * Diagnosis consistent with presentation, labs, and abdominal CT * Severe epigastric abdominal pain worse with eating and movement * 06/20 - lipase elevated at 600 on 06/20; liver enzymes also elevated * 06/23 - lipase is normal at 133, AST elevated at 43, ALT elevated at 76, and alkaline phosphatase elevated at 148 * 06/23 - CRP elevated at 3; ESR elevated at 23 --> 06/24 - CRP now 2 * Abdominal CT showed inflammation of the pancreas and duodenum; left ovary cyst thought to be incidental * Etiology unknown * Denies alcohol use, drug use, abdominal trauma * She had a cholecystectomy in 2009 for gallstones * Calcium normal at 8.8 * Triglycerides normal at 64 * Obese; BMI > 30 * Natalie criteria * Glucose > 200 = NO * Age > 55 = NO * LDH > 350 = NO * AST > 250 = NO * WBC > 16,000 = NO * <3 criteria = 1% mortality * Management * HCG to r/o - negative * IVF to avoid volume depletion * Dilaudid PRN for pain control * Broad-spectrum antibiotics * Low fat diet * Advance from liquid diet to soft foods, then solid foods * Responding well to treatment - plan is to discharge tomorrow 06/25 Pyrosis * H2 farzaneh * Consult dietary for heartburn diet Hypomagnesemia * 2/2 dietary insufficiency * Given IV Mg Ligia Yañez, MS-3. Dr. Menendez has examined the patient and reviewed the note. <Riri Menendez T - Last Filed: 06/24/18 13:05> - Patient Data Vitals - Most Recent: Last Vital Signs Temp 36.4 C 06/24/18 07:54 Pulse 68 06/24/18 07:54 Resp 18 06/24/18 07:54 BP 116/61 06/24/18 07:54 Pulse Ox 100 06/24/18 07:54 I&O - Last 24 Hours: Intake & Output 06/23/18 06/24/18 06/24/18 22:59 06:59 14:59 Intake Total 1775 Output Total 900 Balance 875 Lab Results Last 24 Hours: Laboratory Results - last 24 hr 06/23/18 06/23/18 06/24/18 Range/Units 08:30 15:33 06:40 WBC 7.84 (3.98-10.04) K/mm3 RBC 4.11 (3.98-5.22) M/mm3 Hgb 12.7 (11.2-15.7) gm/L Hct 37.1 (34.1-44.9) % MCV 90.3 (79.4-94.8) fl MCH 30.9 (25.6-32.2) pg MCHC 34.2 (32.2-35.5) g/dl RDW Std Deviation 36.2 L (36.4-46.3) fL Plt Count 305 (182-369) K/mm3 MPV 9.3 L (9.4-12.3) fl Neut % (Auto) 80.8 H (34.0-71.1) % Lymph % (Auto) 14.2 L (19.3-51.7) % [place] % (Auto) 3.6 L (4.7-12.5) % Eos % (Auto) 1.3 (0.7-5.8) Baso % (Auto) 0.1 (0.1-1.2) % Neut # (Auto) 6.34 H (1.56-6.13) K/mm3 Lymph # (Auto) 1.11 L (1.18-3.74) K/mm3 [place] # (Auto) 0.28 (0.24-0.36) K/mm3 Eos # (Auto) 0.10 (0.04-0.36) K/mm3 Baso # (Auto) 0.01 (0.01-0.08) K/mm3 Sodium (136-145) mEq/L Potassium (3.5-5.1) mEq/L Chloride (98-107) mEq/L Carbon Dioxide (21-32) mEq/L Anion Gap (5-15) BUN (7-18) mg/dL Creatinine (0.55-1.02) mg/dL Est Cr Clr Drug Dosing mL/min Estimated GFR (MDRD) (>60) mL/min BUN/Creatinine Ratio (14-18) Glucose (74-106) mg/dL Calcium (8.5-10.1) mg/dL Magnesium (1.8-2.4) mg/dl Lactate Dehydrogenase 252 H (81-234) U/L C-Reactive Protein (<1.0) mg/dL Triglycerides 64 (<150) mg/dL Urine HCG, Qual Negative (NEGATIVE) 06/24/18 Range/Units 06:40 WBC (3.98-10.04) K/mm3 RBC (3.98-5.22) M/mm3 Hgb (11.2-15.7) gm/L Hct (34.1-44.9) % MCV (79.4-94.8) fl MCH (25.6-32.2) pg MCHC (32.2-35.5) g/dl RDW Std Deviation (36.4-46.3) fL Plt Count (182-369) K/mm3 MPV (9.4-12.3) fl Neut % (Auto) (34.0-71.1) % Lymph % (Auto) (19.3-51.7) % [place] % (Auto) (4.7-12.5) % Eos % (Auto) (0.7-5.8) Baso % (Auto) (0.1-1.2) % Neut # (Auto) (1.56-6.13) K/mm3 Lymph # (Auto) (1.18-3.74) K/mm3 [place] # (Auto) (0.24-0.36) K/mm3 Eos # (Auto) (0.04-0.36) K/mm3 Baso # (Auto) (0.01-0.08) K/mm3 Sodium 138 (136-145) mEq/L Potassium 4.2 (3.5-5.1) mEq/L Chloride 105 (98-107) mEq/L Carbon Dioxide 23 (21-32) mEq/L Anion Gap 14.2 (5-15) BUN 6 L (7-18) mg/dL Creatinine 0.6 (0.55-1.02) mg/dL Est Cr Clr Drug Dosing 126.73 mL/min Estimated GFR (MDRD) > 60 (>60) mL/min BUN/Creatinine Ratio 10.0 L (14-18) Glucose 71 L (74-106) mg/dL Calcium 8.9 (8.5-10.1) mg/dL Magnesium 1.6 L (1.8-2.4) mg/dl Lactate Dehydrogenase (81-234) U/L C-Reactive Protein 2.0 H* (<1.0) mg/dL Triglycerides (<150) mg/dL Urine HCG, Qual (NEGATIVE) Med Orders - Current: Current Medications Acetaminophen (Tylenol) 650 mg PO Q4H PRN PRN Reason: Pain (Mild 1-3)/fever Acetaminophen/Codeine Phosphate (Tylenol With Codeine No.3 300mg/30mg) 1 tab PO Q4H PRN PRN Reason: Pain Last Admin: 06/24/18 00:19 Dose: 1 tab Albuterol (Proventil Hfa) 0 gm INH ASDIRECTED PRN PRN Reason: Shortness of Breath Albuterol/Ipratropium (Duoneb 3.0-0.5 Mg/3 Ml) 3 ml NEB Q4H PRN PRN Reason: Shortness Of Breath/wheezing Cyclobenzaprine HCl (Flexeril) 10 mg PO BEDTIME PRN PRN Reason: Muscle Spasm Famotidine (Pepcid) 20 mg PO BID [facility] Last Admin: 06/24/18 09:41 Dose: 20 mg Hydralazine HCl (Apresoline) 20 mg IVPUSH Q4H PRN PRN Reason: Hypertension Hydromorphone HCl (Dilaudid) 0.5 mg IVPUSH Q4H PRN PRN Reason: Pain (severe 7-10) Last Admin: 06/23/18 18:27 Dose: 0.5 mg Lactated Ringer's (Ringers, Lactated) 1,000 mls @ 125 mls/hr IV ASDIRECTED [facility] Last Admin: 06/24/18 06:39 Dose: 125 mls/hr Levofloxacin/Dextrose 500 mg/ (Premix) 100 mls @ 100 mls/hr IV Q24H [facility] Last Admin: 06/24/18 12:13 Dose: 100 mls/hr Promethazine HCl 12.5 mg/ (Sodium Chloride) 50.5 mls @ 100 mls/hr IV Q6H PRN PRN Reason: Nausea/Vomiting Lorazepam (Ativan) 2 mg IVPUSH Q4H PRN PRN Reason: Seizures Lorazepam (Ativan) 1 mg IV Q6H PRN PRN Reason: Anxiety Magnesium Sulfate (Pharmacy To Dose - Magnesium Replacement) 0 dose .XX ASDIRECTED PRN PRN Reason: RX TO WATCH MAG LEVELS Metoprolol Tartrate (Lopressor) 5 mg IVPUSH Q4H PRN PRN Reason: Tachycardia Naproxen (Naprosyn) 500 mg PO Q12H PRN PRN Reason: Pain Last Admin: 06/24/18 10:22 Dose: 500 mg Nicotine (Habitrol) 21 mg TRDERM DAILY PRN PRN Reason: Nicotine Dependence Ondansetron HCl (Zofran) 4 mg IV Q6H PRN PRN Reason: Nausea/Vomiting Last Admin: 06/24/18 12:22 Dose: 4 mg Oxycodone/Acetaminophen (Percocet 325-5 Mg) 1 tab PO Q4H PRN PRN Reason: Pain Rizatriptan 5 Mg ( (Maxalt)) 0 each PO ASDIRECTED PRN PRN Reason: Headache Potassium Chloride (Pharmacy To Dose - Potassium Replacement) 0 dose .XX ASDIRECTED PRN PRN Reason: RX TO WATCH K LEVELS Scopolamine (Transderm-Scop) 1.5 mg TRDERM Q72H PRN PRN Reason: Nausea Last Admin: 06/23/18 18:20 Dose: 1.5 mg Sodium Chloride (Saline Flush) 10 ml FLUSH ASDIRECTED PRN PRN Reason: Keep Vein Open Last Admin: 06/23/18 16:21 Dose: 10 ml Sumatriptan Succinate (Imitrex) 50 mg PO Q2H PRN PRN Reason: Migraine Temazepam (Restoril) 15 mg PO BEDTIME PRN PRN Reason: Sleep Discontinued Medications Hydromorphone HCl (Dilaudid) 0.5 mg IVPUSH ONETIME ONE Stop: 06/23/18 16:06 Last Admin: 06/23/18 16:18 Dose: 0.5 mg Sodium Chloride (Normal Saline) 1,000 mls @ 150 mls/hr IV ASDIRECTED [facility]EL[facility] Stop: 06/24/18 22:54 Last Admin: 06/23/18 16:12 Dose: 150 mls/hr Levofloxacin/Dextrose 500 mg/ (Premix) 100 mls @ 100 mls/hr IV ONETIME ONE Stop: 06/23/18 18:10 Last Admin: 06/23/18 18:14 Dose: 100 mls/hr Magnesium Sulfate 2 gm/ Premix 50 mls @ 25 mls/hr IV ONETIME ONE Stop: 06/24/18 10:59 Last Admin: 06/24/18 09:41 Dose: 25 mls/hr Ondansetron HCl (Zofran) 4 mg IVPUSH ONETIME ONE Stop: 06/23/18 16:06 Last Admin: 06/23/18 16:15 Dose: 4 mg Oxycodone/Acetaminophen (Percocet 325-5 Mg) 1 tab PO ASDIRECTED PRN PRN Reason: Breakthrough Pain Rizatriptan 5 Mg ( (Maxalt)) 0 each PO ASDIRECTED [facility] Pneumococcal Polyvalent Vaccine (Pneumovax 23) 0.5 ml IM .ONCE ONE Stop: 06/23/18 17:43 Potassium Chloride (Klor-Con M20) 40 meq PO Q4H [facility] Stop: 06/23/18 21:46 Last Admin: 06/23/18 21:48 Dose: 40 meq Sumatriptan Succinate (Imitrex) 6 mg SUBCUT ONETIME ONE Stop: 06/24/18 11:54 Last Admin: 06/24/18 12:08 Dose: 6 mg - My Orders Last 24 Hours: My Active Orders 06/23/18 17:06 LORazepam [Ativan] 2 mg IVPUSH Q4H PRN Metoprolol Tartrate [Lopressor] 5 mg IVPUSH Q4H PRN Nicotine [Habitrol] 21 mg TRDERM DAILY PRN hydrALAZINE [Apresoline] 20 mg IVPUSH Q4H PRN 06/23/18 17:07 Height and Weight [RC] 04 VTE/DVT Education [RC] Vital Signs [RC] Q4HR Consult to Case Management/Personal Care Service Provider [CONS] Routine Acetaminophen [Tylenol] 650 mg PO Q4H PRN Albuterol/Ipratropium [DuoNeb 3.0-0.5 MG/3 ML] 3 ml NEB Q4H PRN HYDROmorphone [Dilaudid] 0.5 mg IVPUSH Q4H PRN LORazepam [Ativan] 1 mg IV Q6H PRN Ondansetron [Zofran] 4 mg IV Q6H PRN Promethazine [Phenergan] 12.5 mg Sodium Chloride 0.9% [Normal Saline] 50 ml IV Q6H Temazepam [Restoril] 15 mg PO BEDTIME PRN Resuscitation Status Routine 06/23/18 17:08 Intake and Output [RC] 04,16 Sequential Compression Device [OM.PC] Per Unit Routine 06/23/18 17:15 Lactated Ringers [Ringers, Lactated] 1,000 ml IV ASDIRECTED Magnesium Rep Pharmacy to Dose [Pharmacy to Dose - Magnesium Replacement] 0 dose .XX ASDIRECTED PRN Potassium Rep Pharmacy to Dose [Pharmacy to Dose - Potassium Replacement] 0 dose .XX ASDIRECTED PRN 06/23/18 18:04 Scopolamine [Transderm-Scop] 1.5 mg TRDERM Q72H PRN 06/23/18 22:26 Acetaminophen/Codeine [Tylenol with Codeine No.3 300MG/30MG] 1 tab PO Q4H PRN Albuterol [Proventil HFA] 0 gm INH ASDIRECTED PRN Cyclobenzaprine [Flexeril] 10 mg PO BEDTIME PRN Naproxen [Naprosyn] 500 mg PO Q12H PRN 06/23/18 22:28 Acetaminophen/oxyCODONE [Percocet 325-5 MG] 1 tab PO Q4H PRN 06/24/18 06:43 Up ad Dorina [RC] ASDIRECTED 06/24/18 07:30 Patient's Own Medication [Ptom] 0 each PO ASDIRECTED PRN 06/24/18 09:00 Famotidine [Pepcid] 20 mg PO BID 06/24/18 11:53 SUMAtriptan [Imitrex] 50 mg PO Q2H PRN 06/24/18 12:00 Levofloxacin/Dextrose 5%-Water [Levaquin in D5W 500 MG/100 ML] 500 mg Premix Bag 1 bag IV Q24H 06/24/18 Lunch Soft Diet [DIET] 06/25/18 05:11 BASIC METABOLIC PANEL,BMP [CHEM] AM C-REACTIVE PROTEIN [CHEM] AM CBC WITH AUTO DIFF [HEME] AM MAGNESIUM [CHEM] AM 06/26/18 05:11 BASIC METABOLIC PANEL,BMP [CHEM] AM C-REACTIVE PROTEIN [CHEM] AM CBC WITH AUTO DIFF [HEME] AM MAGNESIUM [CHEM] AM 06/27/18 05:11 BASIC METABOLIC PANEL,BMP [CHEM] AM C-REACTIVE PROTEIN [CHEM] AM CBC WITH AUTO DIFF [HEME] AM MAGNESIUM [CHEM] AM 06/28/18 05:11 BASIC METABOLIC PANEL,BMP [CHEM] AM C-REACTIVE PROTEIN [CHEM] AM CBC WITH AUTO DIFF [HEME] AM MAGNESIUM [CHEM] AM - Plan Plan:: The patient was seen and examined at bedside in concert with the medical student. The assessment and plans were discussed and agreed upon with me. Patient is doing much better and states she is very hungry that she took a few bites of some crakers and did just fine. Her Mg level is slightly low at 1.6. She however reports a one time episode of pyrosis which resolved with pepcid this AM. She states this is not new to her and she had this problem for a long time. We will consult dietary and advance diet (non-fatty/non-greasy meal) as tolerated. If she continues to to do well, possible discharge in AM.
[2018-06-24] MEDS ORDERED: SUMAtriptan 50 MG Tab PO PRN (11:53)
[2018-06-24] MEDS ORDERED: SUMAtriptan 6 MG/0.5 ML SDV SUBCUT ONE (11:53)
[2018-06-24] MEDS: Levofloxacin/Dextrose 5%-Water 500 MG in Premix Bag 1 BAG IV SCH (12:13)
[2018-06-24] MEDS ORDERED: Calcium Carbonate 500 MG Tab.Chew PO PRN (16:44)
[2018-06-24] MEDS ORDERED: Pantoprazole 40 MG Vial IVPUSH ONE (16:44)
[2018-06-24] MEDS: Famotidine 20 MG Tab PO SCH (17:00)
[2018-06-24] MEDS: Saccharomyces Boulardii (Probiotic) 250 MG Cap PO SCH (18:23)
[2018-06-25] MEDS: Lactated Ringers 1,000 ML IV SCH ×2 (00:33→08:30)
[2018-06-25] MEDS ORDERED: Pantoprazole 40 MG Tab.CR PO SCH (06:00)
[2018-06-25] MEDS: Saccharomyces Boulardii (Probiotic) 250 MG Cap PO SCH (08:36)
[2018-06-25] MEDS: Famotidine 20 MG Tab PO SCH (08:36)
[2018-06-25] MEDS ORDERED: Polyethylene Glycol 3350 Powder 17 GM Packet PO ONE (08:44)
[2018-06-25 08:54] VITALS: BP 130/79
[2018-06-25] MEDS ORDERED: Magnesium Sulfate/Water 2 GM in Premix Bag 1 BAG IV ONE (09:00)
[2018-06-25] MEDS ORDERED: Bisacodyl 10 MG Supp RECTAL ONE (09:30)
--- NOTE | 2018-06-25 09:44 | PCM.DCSUM1 ---
<Ligia Yañez - Last Filed: 06/25/18 09:47> Discharge Summary - Hospital Course Brief History: 28 y/o female was admitted 06/23 for pancreatitis. Symptoms started the morning of 06/19, when severe abdominal pain (10/10) awoke her from sleep. She said the pain was epigastric and radiating to her right side, described as severe, stabbing, and crampy. She initially thought she was constipated so she took stool softeners and pepto. She then had nausea and vomiting. Her symptoms persisted throughout Thursday and Thursday morning so she came to the ER on 06/20. She also started having diarrhea at that time, possibly due to the medication she took the day before. Initial work up displayed normal WBC, elevated lipase, and elevated liver enzymes. Abdominal CT showed inflammation near the duodenum and head of the pancreas. She was diagnosed with pancreatitis and put on zofran and dilaudid and sent home. Despite treatment, her symptoms improved only slightly and were still present and quite bothersome. She had been having difficulty sleeping and completing daily tasks. She saw her PCP Nette Song in the clinic 06/23. Repeat labs showed normal WBC , normal lipase, and liver enzymes coming down. Repeat CT showed slightly worsening inflammatory change inferior to the pancreas and duodenum. Slightly enlarging cyst within the left ovary currently measuring 2.9 cm was felt to be incidental. She then came to the ER for further workup and possible admission due to persistent symptoms. She was given fluids and dilaudid in the ER. Pain has decreased from 10/10 to 5/10. She was admitted for further management of pancreatitis. Diagnosis: Stroke: No Modified [place] Scale: No Symptoms at All Modified [place] Scale Score: 0 - Discharge Data Discharge Date: 06/25/18 Discharge Disposition: Home, Self-Care 01 Condition: Good - Discharge Diagnosis/Problem(s) (1) Pancreatitis SNOMED Code(s): 73228363 ICD Code: K85.90 - ACUTE PANCREATITIS WITHOUT NECROSIS OR INFECTION, UNSP Status: Acute Qualifiers: Chronicity: acute Pancreatitis type: unspecified pancreatitis type Acute pancreatitis complication: no infection or necrosis Qualified Code(s): K85.90 - Acute pancreatitis without necrosis or infection, unspecified (2) Hypomagnesemia SNOMED Code(s): 470375668 ICD Code: E83.42 - HYPOMAGNESEMIA Status: Acute (3) Pyrosis SNOMED Code(s): 23830774 ICD Code: R12 - HEARTBURN Status: Acute - Patient Summary/Data Consults: Consultations 06/23/18 17:07 Consult to Case Management/Clay Digger [CONS] Routine 06/24/18 12:58 Consult to Dietary [Consult to Branch Store Manager] [CONS] Routine - Patient Instructions Diet: Regular Diet as Tolerated Diet, Other: low-fat/non-greasy Activity: As Tolerated Driving: May Drive Today Showering/Bathing: May Shower Notify Provider of: Fever, Increased Pain, Swelling and Redness, Drainage, Nausea and/or Vomiting - Discharge Plan *PRESCRIPTION DRUG MONITORING PROGRAM REVIEWED*: No *COPY OF PRESCRIPTION DRUG MONITORING REPORT IN PATIENT ALLISON: No Prescriptions/Med Rec: Bisacodyl [Dulcolax] 10 mg RC BID PRN #10 supp PRN Reason: Constipation Calcium Carbonate [Tums Extra Strength] 750 mg PO ASDIRECTED PRN #30 tab.chew PRN Reason: Indigestion/Pyrosis levoFLOXacin [Levaquin] 500 mg PO DAILY #3 tab Pantoprazole Sodium [Protonix] 40 mg PO BID #60 suspdr.pkt Saccharomyces Boulardii [Florastor] 250 mg PO BID #7 cap Sennosides/Docusate Sodium [Senokot-S Tablet] 1 each PO DAILY #30 tablet Home Medications: Home Meds Acetaminophen/Codeine [Tylenol with Codeine No.3 300MG/30MG] 1 tab PO Q4H PRN [History] Acetaminophen/oxyCODONE [Percocet 325-5 MG] 1 tab PO Q4H PRN 06/23/18 [History] Albuterol [Ventolin HFA] 2 puff INH ASDIRECTED PRN 06/23/18 [History] Cyclobenzaprine [Flexeril] 10 mg PO BEDTIME PRN 06/23/18 [History] Naproxen 500 mg PO Q12H PRN 06/23/18 [History] Ondansetron HCl [Zofran] 4 mg PO Q4HR PRN 06/23/18 [History] Rizatriptan Benzoate [Rizatriptan] 5 mg PO ASDIRECTED 06/23/18 [History] Bisacodyl [Dulcolax] 10 mg RC BID PRN #10 supp 06/25/18 [Rx] Calcium Carbonate [Tums Extra Strength] 750 mg PO ASDIRECTED PRN #30 tab.chew [Rx] Pantoprazole Sodium [Protonix] 40 mg PO BID #60 suspdr.pkt 06/25/18 [Rx] Saccharomyces Boulardii [Florastor] 250 mg PO BID #7 cap 06/25/18 [Rx] Sennosides/Docusate Sodium [Senokot-S Tablet] 1 each PO DAILY #30 tablet [Rx] levoFLOXacin [Levaquin] 500 mg PO DAILY #3 tab 06/25/18 [Rx] Patient Handouts: Acute Pancreatitis, [id number], Heartburn, [id number], Hypomagnesemia, Constipation, Adult, Snsm-[id number], Recurrent Migraine Headache, [id number] Referrals: Nette Song, [facility] [Primary Care Provider] - 07/02/18 1:00 pm - Discharge Summary/Plan Comment Discharge Summary/Plan Comment: Patient was admitted 06/23 for management of pancreatitis, which included pain medication, antibiotics, and bowel rest. This regimen worked quite well for her , as her pain had decreased significantly by the morning of 06/24 and her appetite had returned. Her diet was advanced from liquid only, to soft foods, and finally to solid foods. She was educated on the importance of maintaining a low-fat/non-greasy diet. She continued to do well throughout 06/24 and today, . She is tolerating ambulating and eating without pain. Nausea and vomiting have resolved. She now reports only mild epigastric discomfort. Over the course of her hospital stay she developed hypomagnesemia, likely due to inadequate dietary intake. She was given magnesium supplementation. She also experienced pyrosis, which she said is a chronic and recurring issue. She was given pepcid, which helped her symptoms. It is recommended that she follow-up for further workup of the pyrosis after discharge. She has constipation this morning, for which she was given medication. She otherwise had no complications during her stay and is ready to return home. - General Info Date of Service: 06/25/18 Admission Dx/Problem (Free Text: Admission Diagnosis/Problem Admission Diagnosis/Problem Pancreatitis Functional Status: Reports: Pain Controlled, Tolerating Diet, Ambulating, Urinating Numeric/FACES Score: 2 - Review of Systems General: Reports: No Symptoms HEENT: Reports: No Symptoms Pulmonary: Reports: No Symptoms Cardiovascular: Reports: No Symptoms Gastrointestinal: Reports: Abdominal Pain (mild, improved), Constipation, Other (heartburn) Genitourinary: Reports: No Symptoms Musculoskeletal: Reports: No Symptoms Skin: Reports: No Symptoms Neurological: Reports: No Symptoms Psychiatric: Reports: No Symptoms Systems Review Comment: Patient states she is doing well today and feels ready to return home. She slept well and had no issues through the night. She is eating and ambulating without pain. She is still having mild abdominal pain but it is much improved. She is struggling with constipation and heartburn, for which she was given medication for. Patient is otherwise doing well. - Patient Data Vitals - Most Recent: Last Vital Signs Temp 97.9 F 06/25/18 07:58 Pulse 90 06/25/18 07:58 Resp 16 06/25/18 07:58 BP 130/79 06/25/18 07:58 Pulse Ox 98 06/25/18 07:58 Weight - Most Recent: 84.005 kg I&O - Last 24 hours: Intake & Output 06/24/18 06/25/18 06/25/18 22:59 06:59 14:59 Intake Total 5185 1925 Output Total 3000 1600 Balance 2185 325 Lab Results - Last 24 hrs: Laboratory Results - last 24 hr 06/25/18 06/25/18 Range/Units 06:58 06:58 WBC 5.22 (3.98-10.04) K/mm3 RBC 3.82 L (3.98-5.22) M/mm3 Hgb 12.0 (11.2-15.7) gm/L Hct 34.6 (34.1-44.9) % MCV 90.6 (79.4-94.8) fl MCH 31.4 (25.6-32.2) pg MCHC 34.7 (32.2-35.5) g/dl RDW Std Deviation 36.4 (36.4-46.3) fL Plt Count 280 (182-369) K/mm3 MPV 9.4 (9.4-12.3) fl Neut % (Auto) 60.3 (34.0-71.1) % Lymph % (Auto) 29.9 (19.3-51.7) % [place] % (Auto) 6.9 (4.7-12.5) % Eos % (Auto) 2.7 (0.7-5.8) Baso % (Auto) 0.2 (0.1-1.2) % Neut # (Auto) 3.15 (1.56-6.13) K/mm3 Lymph # (Auto) 1.56 (1.18-3.74) K/mm3 [place] # (Auto) 0.36 (0.24-0.36) K/mm3 Eos # (Auto) 0.14 (0.04-0.36) K/mm3 Baso # (Auto) 0.01 (0.01-0.08) K/mm3 Sodium 138 (136-145) mEq/L Potassium 3.7 (3.5-5.1) mEq/L Chloride 106 (98-107) mEq/L Carbon Dioxide 27 (21-32) mEq/L Anion Gap 8.7 (5-15) BUN 8 (7-18) mg/dL Creatinine 0.8 (0.55-1.02) mg/dL Est Cr Clr Drug Dosing 95.05 mL/min Estimated GFR (MDRD) > 60 (>60) mL/min BUN/Creatinine Ratio 10.0 L (14-18) Glucose 97 (74-106) mg/dL Calcium 8.7 (8.5-10.1) mg/dL Magnesium 1.5 L (1.8-2.4) mg/dl C-Reactive Protein 1.4 H* (<1.0) mg/dL Med Orders - Current: Current Medications Acetaminophen (Tylenol) 650 mg PO Q4H PRN PRN Reason: Pain (Mild 1-3)/fever Acetaminophen/Codeine Phosphate (Tylenol With Codeine No.3 300mg/30mg) 1 tab PO Q4H PRN PRN Reason: Pain Last Admin: 06/24/18 00:19 Dose: 1 tab Albuterol (Proventil Hfa) 0 gm INH ASDIRECTED PRN PRN Reason: Shortness of Breath Albuterol/Ipratropium (Duoneb 3.0-0.5 Mg/3 Ml) 3 ml NEB Q4H PRN PRN Reason: Shortness Of Breath/wheezing Calcium Carbonate/Glycine (Tums) 1,000 mg PO Q2HR PRN PRN Reason: Indigestion Cyclobenzaprine HCl (Flexeril) 10 mg PO BEDTIME PRN PRN Reason: Muscle Spasm Famotidine (Pepcid) 20 mg PO BID [facility] Last Admin: 06/25/18 08:36 Dose: 20 mg Hydralazine HCl (Apresoline) 20 mg IVPUSH Q4H PRN PRN Reason: Hypertension Hydromorphone HCl (Dilaudid) 0.5 mg IVPUSH Q4H PRN PRN Reason: Pain (severe 7-10) Last Admin: 06/23/18 18:27 Dose: 0.5 mg Lactated Ringer's (Ringers, Lactated) 1,000 mls @ 125 mls/hr IV ASDIRECTED [facility] Last Admin: 06/25/18 08:30 Dose: 125 mls/hr Levofloxacin/Dextrose 500 mg/ (Premix) 100 mls @ 100 mls/hr IV Q24H [facility] Last Admin: 06/24/18 12:13 Dose: 100 mls/hr Promethazine HCl 12.5 mg/ (Sodium Chloride) 50.5 mls @ 100 mls/hr IV Q6H PRN PRN Reason: Nausea/Vomiting Magnesium Sulfate 2 gm/ Premix 50 mls @ 25 mls/hr IV ONETIME ONE Stop: 06/25/18 10:59 Last Admin: 06/25/18 09:07 Dose: 25 mls/hr Lorazepam (Ativan) 2 mg IVPUSH Q4H PRN PRN Reason: Seizures Lorazepam (Ativan) 1 mg IV Q6H PRN PRN Reason: Anxiety Magnesium Sulfate (Pharmacy To Dose - Magnesium Replacement) 0 dose .XX ASDIRECTED PRN PRN Reason: RX TO WATCH MAG LEVELS Metoprolol Tartrate (Lopressor) 5 mg IVPUSH Q4H PRN PRN Reason: Tachycardia Naproxen (Naprosyn) 500 mg PO Q12H PRN PRN Reason: Pain Last Admin: 06/24/18 10:22 Dose: 500 mg Nicotine (Habitrol) 21 mg TRDERM DAILY PRN PRN Reason: Nicotine Dependence Ondansetron HCl (Zofran) 4 mg IV Q6H PRN PRN Reason: Nausea/Vomiting Last Admin: 06/24/18 12:22 Dose: 4 mg Oxycodone/Acetaminophen (Percocet 325-5 Mg) 1 tab PO Q4H PRN PRN Reason: Pain Last Admin: 06/25/18 09:08 Dose: 1 tab [facility]) [facility] Last Admin: 06/25/18 06:19 Dose: 40 mg Rizatriptan 5 Mg ( (Maxalt)) 0 each PO ASDIRECTED PRN PRN Reason: Headache Potassium Chloride (Pharmacy To Dose - Potassium Replacement) 0 dose .XX ASDIRECTED PRN PRN Reason: RX TO WATCH K LEVELS Saccharomyces Boulardii (Florastor) 250 mg PO BID [facility] Last Admin: 06/25/18 08:36 Dose: 250 mg Scopolamine (Transderm-Scop) 1.5 mg TRDERM Q72H PRN PRN Reason: Nausea Last Admin: 06/23/18 18:20 Dose: 1.5 mg Sodium Chloride (Saline Flush) 10 ml FLUSH ASDIRECTED PRN PRN Reason: Keep Vein Open Last Admin: 06/23/18 16:21 Dose: 10 ml Sumatriptan Succinate (Imitrex) 50 mg PO Q2H PRN PRN Reason: Migraine Temazepam (Restoril) 15 mg PO BEDTIME PRN PRN Reason: Sleep Discontinued Medications Bisacodyl (Dulcolax) 10 mg RECTAL ONETIME ONE Stop: 06/25/18 09:31 Famotidine (Pepcid) 20 mg PO BID [facility] Last Admin: 06/24/18 09:41 Dose: 20 mg Hydromorphone HCl (Dilaudid) 0.5 mg IVPUSH ONETIME ONE Stop: 06/23/18 16:06 Last Admin: 06/23/18 16:18 Dose: 0.5 mg Sodium Chloride (Normal Saline) 1,000 mls @ 150 mls/hr IV ASDIRECTED [facility] Stop: 06/24/18 22:54 Last Admin: 06/23/18 16:12 Dose: 150 mls/hr Levofloxacin/Dextrose 500 mg/ (Premix) 100 mls @ 100 mls/hr IV ONETIME ONE Stop: 06/23/18 18:10 Last Admin: 06/23/18 18:14 Dose: 100 mls/hr Magnesium Sulfate 2 gm/ Premix 50 mls @ 25 mls/hr IV ONETIME ONE Stop: 06/24/18 10:59 Last Admin: 06/24/18 09:41 Dose: 25 mls/hr Ondansetron HCl (Zofran) 4 mg IVPUSH ONETIME ONE Stop: 06/23/18 16:06 Last Admin: 06/23/18 16:15 Dose: 4 mg Oxycodone/Acetaminophen (Percocet 325-5 Mg) 1 tab PO ASDIRECTED PRN PRN Reason: Breakthrough Pain Pantoprazole Sodium (Protonix Iv) 40 mg IVPUSH ONETIME ONE Stop: 06/24/18 16:45 Last Admin: 06/24/18 17:00 Dose: 40 mg Rizatriptan 5 Mg ( (Maxalt)) 0 each PO ASDIRECTED [facility] Pneumococcal Polyvalent Vaccine (Pneumovax 23) 0.5 ml IM .ONCE ONE Stop: 06/23/18 17:43 Polyethylene Glycol (Miralax) 17 gm PO ONETIME ONE Stop: 06/25/18 08:45 Last Admin: 06/25/18 09:07 Dose: 17 gm Potassium Chloride (Klor-Con M20) 40 meq PO Q4H [facility] Stop: 06/23/18 21:46 Last Admin: 06/23/18 21:48 Dose: 40 meq Sumatriptan Succinate (Imitrex) 6 mg SUBCUT ONETIME ONE Stop: 06/24/18 11:54 Last Admin: 06/24/18 12:08 Dose: 6 mg - Exam General: Reports: Alert, Oriented, Cooperative, No Acute Distress HEENT: Reports: Pupils Equal, Pupils Reactive, EOMI, Mucous Membr. Moist/[place] Neck: Reports: Supple Lungs: Reports: Clear to Auscultation, Normal Respiratory Effort Cardiovascular: Reports: Regular Rate, Regular Rhythm GI/Abdominal Exam: Normal Bowel Sounds, Soft, Tender (Female) Exam: Deferred Rectal (Female) Exam: Deferred Back Exam: Reports: Normal Inspection, Full Range of Motion Extremities: Normal Inspection, Normal Range of Motion, Non-Tender, No Pedal Edema Skin: Reports: Warm, Dry, Intact Neurological: Reports: No New Focal Deficit Psy/Mental Status: Reports: Alert, Normal Affect, Normal Mood Physical Findings Comments:: Patient appears comfortable and in no acute distress. She is pleasant and cooperative. There is some tenderness upon deep palpation to the epigastric region of the abdomen. She also has cramping and tenderness with palpation across lower abdomen, which she believes to be due to her constipation. There are no other abnormalities found upon physical exam. Ligia Yañez, MS-3. Dr. Menendez has examined the patient and agrees with the plan. <Riri Menendez T - Last Filed: 06/25/18 16:23> Discharge Summary - Discharge Diagnosis/Problem(s) (1) Acute pancreatitis SNOMED Code(s): 733062326 ICD Code: K85.90 - ACUTE PANCREATITIS WITHOUT NECROSIS OR INFECTION, UNSP Status: Acute Qualifiers: Pancreatitis type: idiopathic Acute pancreatitis complication: no infection or necrosis Qualified Code(s): K85.00 - Idiopathic acute pancreatitis without necrosis or infection (2) Hypomagnesemia syndrome SNOMED Code(s): 279926472 ICD Code: E83.42 - HYPOMAGNESEMIA Status: Acute (3) Pyrosis SNOMED Code(s): 83023260 ICD Code: R12 - HEARTBURN Status: Chronic (4) Migraine SNOMED Code(s): 29769461 ICD Code: G43.909 - MIGRAINE, UNSP, NOT INTRACTABLE, WITHOUT STATUS MIGRAINOSUS Status: Chronic (5) Constipation due to opioid therapy SNOMED Code(s): 148843353998217 ICD Code: K59.03 - DRUG INDUCED CONSTIPATION; T40.2X5A - ADVERSE EFFECT OF OTHER OPIOIDS, INITIAL ENCOUNTER Status: Acute - Patient Summary/Data Consults: Consultations 06/23/18 17:07 Consult to Case Management/Clay Digger [CONS] Routine 06/24/18 12:58 Consult to Dietary [Consult to Branch Store Manager] [CONS] Routine - Discharge Summary/Plan Comment Discharge Summary/Plan Comment: The patient was seen and examined at bedside in concert with the medical student. The discharge assessment and plans were discussed and agreed upon with me. Patient rested well last night and tolerating regular diet. She had no complaints. She was stable upon discharged and was released with prescriptions for constipation, additional course of oral anti-biotic with probiotic as well protonix for her pyrosis. She was advised to see a GI specialist after discharge for evaluation of her longstanding (> 10 years) heart burn. The patient expressed understanding and in agreement with the plans as discussed above. All questions were answered. - Patient Data Vitals - Most Recent: Last Vital Signs Temp 36.6 C 06/25/18 07:58 Pulse 90 06/25/18 07:58 Resp 16 06/25/18 07:58 BP 130/79 06/25/18 07:58 Pulse Ox 98 06/25/18 07:58 I&O - Last 24 hours: Intake & Output 06/25/18 06/25/18 06/25/18 06:59 14:59 22:59 Intake Total 1925 2770 Output Total 1600 2200 Balance 325 570 Lab Results - Last 24 hrs: Laboratory Results - last 24 hr 06/25/18 06/25/18 Range/Units 06:58 06:58 WBC 5.22 (3.98-10.04) K/mm3 RBC 3.82 L (3.98-5.22) M/mm3 Hgb 12.0 (11.2-15.7) gm/L Hct 34.6 (34.1-44.9) % MCV 90.6 (79.4-94.8) fl MCH 31.4 (25.6-32.2) pg MCHC 34.7 (32.2-35.5) g/dl RDW Std Deviation 36.4 (36.4-46.3) fL Plt Count 280 (182-369) K/mm3 MPV 9.4 (9.4-12.3) fl Neut % (Auto) 60.3 (34.0-71.1) % Lymph % (Auto) 29.9 (19.3-51.7) % [place] % (Auto) 6.9 (4.7-12.5) % Eos % (Auto) 2.7 (0.7-5.8) Baso % (Auto) 0.2 (0.1-1.2) % Neut # (Auto) 3.15 (1.56-6.13) K/mm3 Lymph # (Auto) 1.56 (1.18-3.74) K/mm3 [place] # (Auto) 0.36 (0.24-0.36) K/mm3 Eos # (Auto) 0.14 (0.04-0.36) K/mm3 Baso # (Auto) 0.01 (0.01-0.08) K/mm3 Sodium 138 (136-145) mEq/L Potassium 3.7 (3.5-5.1) mEq/L Chloride 106 (98-107) mEq/L Carbon Dioxide 27 (21-32) mEq/L Anion Gap 8.7 (5-15) BUN 8 (7-18) mg/dL Creatinine 0.8 (0.55-1.02) mg/dL Est Cr Clr Drug Dosing 95.05 mL/min Estimated GFR (MDRD) > 60 (>60) mL/min BUN/Creatinine Ratio 10.0 L (14-18) Glucose 97 (74-106) mg/dL Calcium 8.7 (8.5-10.1) mg/dL Magnesium 1.5 L (1.8-2.4) mg/dl C-Reactive Protein 1.4 H* (<1.0) mg/dL Med Orders - Current: Current Medications Discontinued Medications Acetaminophen (Tylenol) 650 mg PO Q4H PRN PRN Reason: Pain (Mild 1-3)/fever Acetaminophen/Codeine Phosphate (Tylenol With Codeine No.3 300mg/30mg) 1 tab PO Q4H PRN PRN Reason: Pain Last Admin: 06/24/18 00:19 Dose: 1 tab Albuterol (Proventil Hfa) 0 gm INH ASDIRECTED PRN PRN Reason: Shortness of Breath Albuterol/Ipratropium (Duoneb 3.0-0.5 Mg/3 Ml) 3 ml NEB Q4H PRN PRN Reason: Shortness Of Breath/wheezing Bisacodyl (Dulcolax) 10 mg RECTAL ONETIME ONE Stop: 06/25/18 09:31 Last Admin: 06/25/18 10:48 Dose: Not Given Calcium Carbonate/Glycine (Tums) 1,000 mg PO Q2HR PRN PRN Reason: Indigestion Cyclobenzaprine HCl (Flexeril) 10 mg PO BEDTIME PRN PRN Reason: Muscle Spasm Famotidine (Pepcid) 20 mg PO BID [facility] Last Admin: 06/24/18 09:41 Dose: 20 mg Famotidine (Pepcid) 20 mg PO BID [facility] Last Admin: 06/25/18 08:36 Dose: 20 mg Hydralazine HCl (Apresoline) 20 mg IVPUSH Q4H PRN PRN Reason: Hypertension Hydromorphone HCl (Dilaudid) 0.5 mg IVPUSH ONETIME ONE Stop: 06/23/18 16:06 Last Admin: 06/23/18 16:18 Dose: 0.5 mg Hydromorphone HCl (Dilaudid) 0.5 mg IVPUSH Q4H PRN PRN Reason: Pain (severe 7-10) Last Admin: 06/23/18 18:27 Dose: 0.5 mg Sodium Chloride (Normal Saline) 1,000 mls @ 150 mls/hr IV ASDIRECTED [facility] Stop: 06/24/18 22:54 Last Admin: 06/23/18 16:12 Dose: 150 mls/hr Lactated Ringer's (Ringers, Lactated) 1,000 mls @ 125 mls/hr IV ASDIRECTED [facility] Last Admin: 06/25/18 08:30 Dose: 125 mls/hr Levofloxacin/Dextrose 500 mg/ (Premix) 100 mls @ 100 mls/hr IV ONETIME ONE Stop: 06/23/18 18:10 Last Admin: 06/23/18 18:14 Dose: 100 mls/hr Levofloxacin/Dextrose 500 mg/ (Premix) 100 mls @ 100 mls/hr IV Q24H [facility] Last Admin: 06/25/18 12:02 Dose: 100 mls/hr Promethazine HCl 12.5 mg/ (Sodium Chloride) 50.5 mls @ 100 mls/hr IV Q6H PRN PRN Reason: Nausea/Vomiting Magnesium Sulfate 2 gm/ Premix 50 mls @ 25 mls/hr IV ONETIME ONE Stop: 06/24/18 10:59 Last Admin: 06/24/18 09:41 Dose: 25 mls/hr Magnesium Sulfate 2 gm/ Premix 50 mls @ 25 mls/hr IV ONETIME ONE Stop: 06/25/18 10:59 Last Admin: 06/25/18 09:07 Dose: 25 mls/hr Lorazepam (Ativan) 2 mg IVPUSH Q4H PRN PRN Reason: Seizures Lorazepam (Ativan) 1 mg IV Q6H PRN PRN Reason: Anxiety Magnesium Sulfate (Pharmacy To Dose - Magnesium Replacement) 0 dose .XX ASDIRECTED PRN PRN Reason: RX TO WATCH MAG LEVELS Metoprolol Tartrate (Lopressor) 5 mg IVPUSH Q4H PRN PRN Reason: Tachycardia Naproxen (Naprosyn) 500 mg PO Q12H PRN PRN Reason: Pain Last Admin: 06/24/18 10:22 Dose: 500 mg Nicotine (Habitrol) 21 mg TRDERM DAILY PRN PRN Reason: Nicotine Dependence Ondansetron HCl (Zofran) 4 mg IVPUSH ONETIME ONE Stop: 06/23/18 16:06 Last Admin: 06/23/18 16:15 Dose: 4 mg Ondansetron HCl (Zofran) 4 mg IV Q6H PRN PRN Reason: Nausea/Vomiting Last Admin: 06/24/18 12:22 Dose: 4 mg Oxycodone/Acetaminophen (Percocet 325-5 Mg) 1 tab PO ASDIRECTED PRN PRN Reason: Breakthrough Pain Oxycodone/Acetaminophen (Percocet 325-5 Mg) 1 tab PO Q4H PRN PRN Reason: Pain Last Admin: 06/25/18 09:08 Dose: 1 tab Pantoprazole Sodium (Protonix) 40 mg PO BIDAC [facility] Last Admin: 06/25/18 06:19 Dose: 40 mg Pantoprazole Sodium (Protonix Iv) 40 mg IVPUSH ONETIME ONE Stop: 06/24/18 16:45 Last Admin: 06/24/18 17:00 Dose: 40 mg Rizatriptan 5 Mg ( (Maxalt)) 0 each PO ASDIRECTED [facility] Rizatriptan 5 Mg ( (Maxalt)) 0 each PO ASDIRECTED PRN PRN Reason: Headache Pneumococcal Polyvalent Vaccine (Pneumovax 23) 0.5 ml IM .ONCE ONE Stop: 06/23/18 17:43 Polyethylene Glycol (Miralax) 17 gm PO ONETIME ONE Stop: 06/25/18 08:45 Last Admin: 06/25/18 09:07 Dose: 17 gm Potassium Chloride (Pharmacy To Dose - Potassium Replacement) 0 dose .XX ASDIRECTED PRN PRN Reason: RX TO WATCH K LEVELS Potassium Chloride (Klor-Con M20) 40 meq PO Q4H [facility] Stop: 06/23/18 21:46 Last Admin: 06/23/18 21:48 Dose: 40 meq Saccharomyces Boulardii (Florastor) 250 mg PO BID [facility] Last Admin: 06/25/18 08:36 Dose: 250 mg Scopolamine (Transderm-Scop) 1.5 mg TRDERM Q72H PRN PRN Reason: Nausea Last Admin: 06/23/18 18:20 Dose: 1.5 mg Sodium Chloride (Saline Flush) 10 ml FLUSH ASDIRECTED PRN PRN Reason: Keep Vein Open Last Admin: 06/23/18 16:21 Dose: 10 ml Sumatriptan Succinate (Imitrex) 6 mg SUBCUT ONETIME ONE Stop: 06/24/18 11:54 Last Admin: 06/24/18 12:08 Dose: 6 mg Sumatriptan Succinate (Imitrex) 50 mg PO Q2H PRN PRN Reason: Migraine Temazepam (Restoril) 15 mg PO BEDTIME PRN PRN Reason: Sleep
[2018-06-25] MEDS: Levofloxacin/Dextrose 5%-Water 500 MG in Premix Bag 1 BAG IV SCH (12:02)
== END 2018-06-25 13:35 | disposition home or self-care (01) | DRG 282 ==
LOC: JD.ED 15:40 → UNDOADMIN 16:49 → JD.MS 16:49
PROVIDERS: ADMIT Internal Medicine; ATTEND Internal Medicine
DX: K85.90 Acute pancreatitis without necrosis or infection, unspecified (principal); E83.42 Hypomagnesemia; R12 Heartburn; G43.909 Migraine, unspecified, not intractable, without status migrainosus; K59.03 Drug induced constipation; T40.2X5A Adverse effect of other opioids, initial encounter; H54.7 Unspecified visual loss; Z79.899 Other long term (current) drug therapy; J45.909 Unspecified asthma, uncomplicated; Z90.49 Acquired absence of other specified parts of digestive tract
CPT/HCPCS: 36415; 80048; 81025; 83615; 83735; 84478; 85025; 86140; 96361; 96374; 96375; 99284-25; 99285; A9270-GY; C9113; J1170; J1956; J2405; J3030; J3475; J7040; J7050; J7120

== ENCOUNTER 2019-02-22 06:47 | Day surgery (SDC) | payer BC ==
[2019-02-22] MEDS ORDERED: Sodium Chloride 0.9% 10 ML Syringe FLUSH PRN (07:00)
[2019-02-22] MEDS ORDERED: Lidocaine 1%/Sod Bicarbonate in NS 8.4% 1 ML Syringe IDERM PRN (07:00)
[2019-02-22] MEDS ORDERED: Lactated Ringers 1,000 ML IV SCH (07:00)
[2019-02-22] MEDS ORDERED: Lactated Ringers 1,000 ML ONE (07:02)
[2019-02-22] MEDS ORDERED: Ketorolac 30 MG/ML SDV ONE (07:02)
[2019-02-22] MEDS ORDERED: Rocuronium 50 MG/5 ML Vial ONE (07:02)
[2019-02-22] MEDS ORDERED: Dexamethasone 4 MG/ML SDV ONE (07:02)
[2019-02-22] MEDS ORDERED: Ondansetron 4 MG/2 ML SDV ONE (07:02)
[2019-02-22] MEDS ORDERED: Propofol 200 MG/20 ML SDV ONE (07:03)
[2019-02-22] MEDS ORDERED: HYDROmorphone 0.5 MG/0.5 ML Syringe ONE ×2 (07:03→08:21)
[2019-02-22] MEDS ORDERED: ceFAZolin 1 GM Vial ONE ×2 (07:03→07:04)
[2019-02-22] MEDS ORDERED: fentaNYL 250 MCG/5 ML SDV ONE (07:03)
[2019-02-22] MEDS ORDERED: Midazolam 1 MG/ML 2 ML SDV ONE (07:03)
[2019-02-22] MEDS ORDERED: Lidocaine 1% with EPINEPHrine 1:100,000 20 ML MDV ONE (07:09)
[2019-02-22] MEDS ORDERED: Sodium Chloride 0.9% 50 ML SDV ONE (07:09)
[2019-02-22] MEDS ORDERED: Bupivacaine 0.5% 30 ML SDV ONE (07:09)
[2019-02-22] MEDS ORDERED: Scopolamine 1.5 MG Transdermal Patch TOP SCH (07:15)
--- NOTE | 2019-02-22 07:22 | PCM.PREANE ---
Preanesthetic Assessment - Anesthesia/Transfusion/Family Hx Anesthesia History: Prior Anesthesia Without Reaction Family History of Anesthesia Reaction: No Transfusion History: No Prior Transfusion(s) - Review of Systems General: No Symptoms Pulmonary: Other (asthma, will use inhaler prior to surgery) Gastrointestinal: Other (GERD, better controlled) Neurological: No Symptoms - Physical Assessment NPO Status Date: 02/21/19 NPO Status Time: 23:30 Pulse: 85 O2 Sat by Pulse Oximetry: 97 Respiratory Rate: 16 Blood Pressure: 127/85 Temperature: 36.6 C Vital Signs: Last Vital Signs Temp 36.5 C 02/22/19 07:00 Pulse 85 02/22/19 07:00 Resp 16 02/22/19 07:00 BP 127/85 02/22/19 07:00 Pulse Ox 97 02/22/19 07:00 Weight: 74.616 kg ASA Class: 2 Mental Status: Alert & Oriented x3 Airway Class: Mallampati = 2 Dentition: Reports: Normal Dentition Thyro-Mental Finger Breadths: 3 Mouth Opening Finger Breadths: 3 ROM/Head Extension: Full Lungs: Clear to Auscultation, Normal Respiratory Effort Cardiovascular: Regular Rate, Regular Rhythm - Lab Values: Laboratory Last Values Urine HCG, Qual Negative (NEGATIVE) 02/22/19 06:54 - Allergies Allergies/Adverse Reactions: Allergies Allergy/AdvReac Type Severity Reaction Status Date / Time No Known Allergies Allergy Verified 02/21/19 12:27 - Blood Blood Available: No Product(s) Available: None - Acknowledgements Anesthesia Type Planned: General Anesthesia Pt an Appropriate Candidate for the Planned Anesthesia: Yes Alternatives and Risks of Anesthesia Discussed w Pt/Guardian: Yes Pt/Guardian Understands and Agrees with Anesthesia Plan: Yes PreAnesthesia Questionnaire HEENT History: Reports: Impaired Vision Cardiovascular History: Reports: None Respiratory History: Reports: Asthma Gastrointestinal History: Reports: Cholelithiasis, Chronic Diarrhea, GERD, Helicobacter Pylori Genitourinary History: Reports: Pyelonephritis, UTI, Recurrent, Other (See Below ) Other Genitourinary History: frequency 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: Musculoskeletal History: Reports: Back Pain, Chronic, Other (See Below) Other Musculoskeletal History: Accessory nebicular Neurological History: Reports: Headaches, Chronic, Migraines Psychiatric History: Reports: None Endocrine/Metabolic History: Reports: None Hematologic History: Reports: None Immunologic History: Reports: None Oncologic (Cancer) History: Reports: None Dermatologic History: Reports: None - Past Surgical History Head Surgeries/Procedures: Reports: None HEENT Surgical History: Reports: Other (See Below) Other HEENT Surgeries/Procedures: wisdom teeth removed Cardiovascular Surgical History: Reports: None Respiratory Surgical History: Reports: None GI Surgical History: Reports: Appendectomy, Cholecystectomy Female Surgical History: Reports: Other (See Below) Other Female Surgeries/Procedures: ovarian cyst x2 in December-January 2018 Endocrine Surgical History: Reports: None Neurological Surgical History: Reports: None Musculoskeletal Surgical History: Reports: Other (See Below) Other Musculoskeletal Surgeries/Procedures:: left foot acessory navicular bone removed, screw in place Oncologic Surgical History: Reports: None Dermatological Surgical History: Reports: None - SUBSTANCE USE Smoking Status *Q: Never Smoker Recreational Drug Use History: No - HOME MEDS Home Medications: Home Meds Albuterol [Ventolin HFA] 2 puff INH ASDIRECTED PRN 06/23/18 [History] Ondansetron HCl [Zofran] 4 mg PO Q4HR PRN 06/23/18 [History] traMADol [Ultram] 50 mg PO Q6H PRN #30 tab 01/19/19 [Rx] Acetaminophen [Tylenol] 650 mg PO Q4H PRN 02/21/19 [History] Omeprazole 20 mg PO DAILY 02/21/19 [History] - CURRENT (IN HOUSE) MEDS Current Meds: Current Medications Lactated Ringer's (Ringers, Lactated) 1,000 mls @ 125 mls/hr IV ASDIRECTED AMELIA Stop: 02/22/19 23:00 Lidocaine/Sodium Bicarbonate (Buffered Lidocaine 1% In Ns 8.4%) 0.25 ml IDERM ONETIME PRN PRN Reason: Prior to IV Start Stop: 02/22/19 18:00 Scopolamine (Transderm-Scop) 1.5 mg TOP ONETIME AMELIA Sodium Chloride (Saline Flush) 10 ml FLUSH ASDIRECTED PRN PRN Reason: Keep Vein Open Stop: 02/22/19 18:00 Discontinued Medications Bupivacaine HCl (Marcaine 0.5%) Confirm Administered Dose 30 ml .ROUTE .STK-MED ONE Stop: 02/22/19 07:10 Cefazolin Sodium (Ancef) Confirm Administered Dose 1 gm .ROUTE .STK-MED ONE Stop: 02/22/19 07:04 Cefazolin Sodium (Ancef) Confirm Administered Dose 1 gm .ROUTE .[facility]-MED ONE Stop: 02/22/19 07:05 Dexamethasone (Dexamethasone) Confirm Administered Dose 4 mg .ROUTE .[facility] ONE Stop: 02/22/19 07:03 Fentanyl (Sublimaze) Confirm Administered Dose 250 mcg .ROUTE .[facility]-MED ONE Stop: 02/22/19 07:04 Hydromorphone HCl (Dilaudid) Confirm Administered Dose 0.5 mg .ROUTE .[facility] ONE Stop: 02/22/19 07:04 Lactated Ringer's (Ringers, Lactated) Confirm Administered Dose 1,000 mls @ as directed .ROUTE .[facility] ONE Stop: 02/22/19 07:03 Ketorolac Tromethamine (Toradol) Confirm Administered Dose 30 mg .ROUTE .[facility]- MED ONE Stop: 02/22/19 07:03 Lidocaine/Epinephrine (Xylocaine 1% With Epinephrine 1:100,000) Confirm Administered Dose 20 ml .ROUTE .[facility] ONE Stop: 02/22/19 07:10 Midazolam HCl (Versed 1 Mg/Ml) Confirm Administered Dose 2 mg .ROUTE .[facility]-MED ONE Stop: 02/22/19 07:04 Ondansetron HCl (Zofran) Confirm Administered Dose 4 mg .ROUTE .[facility] ONE Stop: 02/22/19 07:03 Propofol (Diprivan 20 Ml) Confirm Administered Dose 200 mg .ROUTE .[facility] ONE Stop: 02/22/19 07:04 Rocuronium [place] (Zemuron) Confirm Administered Dose 50 mg .ROUTE .[facility]-MED ONE Stop: 02/22/19 07:03 Sodium Chloride (Normal Saline) Confirm Administered Dose 50 ml .ROUTE .[facility] ONE Stop: 02/22/19 07:10
[2019-02-22] MEDS ORDERED: Ondansetron 4 MG/2 ML SDV IVPUSH PRN (09:25)
[2019-02-22] MEDS ORDERED: Midazolam 1 MG/ML 2 ML SDV IVPUSH PRN (09:25)
[2019-02-22] MEDS ORDERED: HYDROmorphone 0.5 MG/0.5 ML Syringe IVPUSH PRN (09:25)
[2019-02-22] MEDS: fentaNYL 100 MCG/2 ML SDV IVPUSH PRN ×2 (09:27→09:53)
--- NOTE | 2019-02-22 09:27 | PCM.POSTAN ---
POST ANESTHESIA ASSESSMENT - MENTAL STATUS Mental Status: Alert, Oriented - VITAL SIGNS Pulse Rate: 58 SaO2: 100 Resp Rate: 16 Blood Pressure: 120/77 Temperature: 36.8 C - RESPIRATORY Respiratory Status: Respiratory Rate WNL, Airway Patent, O2 Saturation Stable, Supplemental Oxygen - CARDIOVASCULAR CV Status: Pulse Rate WNL, Blood Pressure Stable - GASTROINTESTINAL GI Status: No Symptoms - PAIN Pain Score: 4 (fentanyl given) - POST OP HYDRATION Hydration Status: Adequate & Stable
--- NOTE | 2019-02-22 09:48 | PCM.OPNOTE ---
- General Post-Op/Procedure Note Date of Surgery/Procedure: 02/22/19 Operative Procedure(s): Laparoscopic-assisted vaginal hysterectomy with bilateral salpingectomy Findings: Overall normal-appearing uterus, fallopian tubes and ovaries bilaterally. Small amount of filmy adhesions over the right ovary and to the left fallopian tube. Overall normal-appearing cervix. Normal-appearing visualized portions of the intestines. Pre Op Diagnosis: Female pelvic pain, adnexal mass, menorrhagia with irregular cycle and dysmenorrhea Post-Op Diagnosis: Same Primary Surgeon: Scar Valentine Anesthesia Provider: Sammie Hernandez Strategic Planning Analyst: Reynaldo Burt Strategic Planning Analyst: Manuel Craft Reason Strategic Planning Analyst Was Necessary: Patient safety and reduction of morbidity and mortality Role of Strategic Planning Analyst: Laparoscopic skills for surgical procedure and retraction for visualization of procedure Pathology: Cervix, uterus and bilateral fallopian tubes Fluid Replacement, Intraop: 1,400 Output, Urine Amount: 50 EBL in mLs: 50 Complications: None Condition: Good Free Text/Narrative:: Length of procedure: 58 minutes Procedure in detail: The patient was seen in the preoperative holding area and risks, benefits, indications, and alternatives of the procedure were reviewed with the patient and she desired to proceed with a laparoscopic assisted vaginal hysterectomy, bilateral salpingectomy, possible unilateral or bilateral salpingo-oophorectomy, transvaginal mid-urethral sling and possible total abdominal hysterectomy. Consents were reviewed. The patient was taken back to the OR and given general anesthesia with an endotracheal tube which was placed without difficulty. She was placed in dorsal lithotomy position using Yellofin stirrups. She was prepped and draped in normal sterile fashion. A López catheter was placed without difficulty. Attention was then turned to her umbilicus where a previous laparoscopic scar was visualized. This was injected with 0.5% Marcaine and a 5 mm stab incision was made with a scalpel and a Veress needle was then inserted through the incision. The gas was turned on, with an opening pressure of [6] mmHg. Pneumoperitoneum was continued until 15 mmHg pressure. A 5 mm trocar was then inserted under direct visualization through the incision without difficulty. Attention was then turned to the patient's right lower quadrant where an avascular space approximately correction between the ASIS and the umbilicus was identified. Local anesthetic was injected and a 5 mm incision was made with a scalpel. A 5 mm trocar was then inserted under direct visualization of the laparoscope. Attention was then turned to the left lower quadrant, where again an avascular portion of the abdominal wall was identified approximately correction between the ASIS and the umbilicus. Local anesthetic was injected and a scalpel was used to make a 5 mm incision. A 5 mm trocar was inserted under direct visualization with the laparoscope. Attention was then turned to the pelvis where the uterus was visualized and noted be normal in appearance with normal appearing bilateral fallopian tubes and normal-appearing bilateral ovaries. An Enseal vessel sealing device was introduced and was used to transect the left fallopian tube and round ligament. The mesosalpinx connecting the left fallopian tube was transected from the ovary and underlying tissue. The left round ligament was then transected using the Enseal vessel sealing device. The utero-ovarian ligament was then transected using the Enseal vessel sealing device. The left side of the uterus and broad ligament were then transected using the Enseal vessel sealing device until the level of the uterovesical peritoneal reflection. This was repeated on the patient's right side. The fallopian tube was transected from the mesosalpinx using the Enseal vessel sealing device. The utero-ovarian ligament was then transected using Enseal vessel sealing device. The right round ligament was transected using Enseal vessel sealing device and the broad ligament was transected to the level of the uterovesical peritoneal reflection. The pelvis was then inspected for hemostasis at this time and hemostasis was noted. All instruments were removed from the abdomen. Attention was then turned to the patient's perineum where a weighted speculum was placed into the vagina and a [place] retractor was used to visualize the cervix. The cervix was grasped with a double-tooth tenaculum. The cervical reflection point was then injected circumferentially with 0.25% lidocaine with epinephrine. The cervix was then circumferentially incised with a scalpel. The bladder was then dissected off the pubovesical cervical fascia anteriorly with Metzenbaum scissors. The same procedure was performed posteriorly and the posterior cul-de-sac was entered sharply without difficulty using Metzenbaum scissors. At this point, an Enseal vessel sealing device was placed over the uterosacral ligaments on the patient's left side. These were cauterized and ligated with the device. This was repeated on the patient's right side. Hemostasis was assured. The cardinal ligaments were then clamped on both sides using the Enseal vessel sealing device, cauterized and transected with the device. The uterine artery on the patient's right side side and the remainder of the broad ligament were then serially clamped with the Enseal vessel sealing device, cauterized and transected with the device. Excellent hemostasis was noted. The cervix and uterus was able to be delivered at this time. The posterior vaginal cuff was closed with running locked sutures of 0 Monocryl. The vaginal cuff was then closed in a horizontal fashion using running locked sutures with 0 Monocryl suture. All instruments were removed from the vagina. Attention was then turned to the abdomen where a laparoscope was inserted and was used to check for hemostasis. Hemostasis was noted at this time. The case was complete at this time. The gas was then evacuated from the peritoneum and trocars removed. These were closed using 4-0 Monocryl suture and Dermabond. The patient was awoken from general anesthesia and taken to the PACU for recovery in stable condition. She will be discharged to home once she is able to meet all postoperative milestones including tolerating small amount of oral intake and liquids, ambulate without difficulty, her pain controlled with oral medications and able to void without difficulty. She will follow-up in the clinic in 2 weeks or earlier as needed. Sponge, lap, needle, and instrument counts were correct x 2.
[2019-02-22] MEDS ORDERED: Haloperidol Lactate 5 MG/ML SDV IVPUSH ONE (10:29)
--- NOTE | 2019-02-22 11:12 | PCM48HPAN ---
Post Anesthesia Note - EVALUATION WITHIN 48HRS OF ANESTHETIC Vital Signs in Normal Range: Yes Patient Participated in Evaluation: Yes Respiratory Function Stable: Yes Airway Patent: Yes Cardiovascular Function Stable: Yes Hydration Status Stable: Yes Pain Control Satisfactory: Yes Nausea and Vomiting Control Satisfactory: Yes Mental Status Recovered: Yes Pulse Rate: 58 SaO2: 100 Resp Rate: 16 Temperature: 36.8 C Blood Pressure: 120/77
[2019-02-22 11:39] VITALS: BP 117/62
[2019-02-22] MEDS ORDERED: Acetaminophen/oxyCODONE 325-5 MG Tab PO ONE (11:59)
== END 2019-02-22 12:38 | disposition home or self-care (01) ==
LOC: JD.SDS 06:47
PROVIDERS: ATTEND Obstetrics & Gynecology
DX: N80.0 Endometriosis of uterus (principal); N72 Inflammatory disease of cervix uteri; N73.6 Female pelvic peritoneal adhesions (postinfective); K21.9 Gastro-esophageal reflux disease without esophagitis; J45.909 Unspecified asthma, uncomplicated; Z79.899 Other long term (current) drug therapy
CPT/HCPCS: 00944; 36415; 81025; 86850; 86900; 86901; A9270-GY; J0690; J1100; J1170; J1630; J1885; J2250; J2405; J2704; J3010; J3490; J7120

== ENCOUNTER 2019-02-27 10:11 | Emergency (ER) | payer BC ==
[2019-02-27 10:24] VITALS: BP 130/92
[2019-02-27] MEDS ORDERED: Ondansetron 4 MG/2 ML SDV IVPUSH ONE (10:25)
[2019-02-27] MEDS ORDERED: Nalbuphine 20 MG/ML 1 ML Syringe IVPUSH ONE ×2 (11:12→11:27)
[2019-02-27] MEDS ORDERED: cefTRIAXone 1 GM in Sodium Chloride 0.9% 100 ML IV ONE (11:14)
--- NOTE | 2019-02-27 11:30 | PCM.SN ---
- Free Text/Narrative Note: 28 y/o S/P LAVHBS on Thursday02/22/[address] Valentine. Patient reported to ER C/O lower abdominal pain, slight nausea. Having normal bowel movements, taking Colace bid. Also noted slight amount of vaginal bleeding. Some post void discomfort with urination. Afebrile. Normal WBC and Hgb today. Denies coitus since surgery. Pain started this morning, had been minimal pain until then. Rates pain 7/10. Exam revealed soft abdomen, not distended, no rebound or referred pain, tender in midline suprapubic, to deep palpation, normal bowel sounds. Vaginal exam BUS , Vulva normal, no blood, vagina speculum exam, no active bleeding, small 1x1 cm old blood clot at vaginal cuff, mid portion, no signs of "popped" suture. No active bleeding. Bimanual exam c/o tenderness midportion of cuff, small 1.5x1.5x1.5 cm "mass" palpated, possible hematoma, both ovaries palpable at left and right side. Patient appears in pain and crying with and after pelvic exam Vaginal cuff cellulitis (tenderness) N76.0 Vaginal cuff hematoma N89.8) Rocephin 1 g given intravenously and will continue Keflex (cephalexin) 500 mg by mouth every 6 hours for 10 days dispense 40 from [facility] Had some nausea given Zofran IV helped the nausea to resolve patient has Zofran and ODT at home. Percocet 5/325 dispense 20 sig one to 2 by mouth every 6 hours when necessary pain in the pharmacy board website accessed and report copied to chart Patient declined admission to the hospital. Patient will need to see Dr. Valentine tomorrow., Nurse will call [phone] message to contact patient tomorrow. Patient will return to emergency room if symptoms worsen.
== END 2019-02-27 12:13 | disposition home or self-care (01) ==
LOC: JD.ED 10:11
DX: N76.0 Acute vaginitis (principal)
CPT/HCPCS: 36415; 80053; 85025; 96365; 96375; 99284; J0696; J2300; J2405; J7030

== ENCOUNTER 2019-11-10 07:58 | Day surgery (SDC) | payer BC ==
[~2019-11-10 07:58] MED LIST: Lactated Ringers 1,000 ML IV SCH; Lidocaine 1% 4 ML ONE; Lidocaine 1%/Sod Bicarbonate in NS 8.4% 1 ML Syringe IDERM PRN; Midazolam 1 MG/ML 2 ML SDV ONE; Propofol 200 MG/20 ML SDV ONE; Sodium Chloride 0.9% 10 ML Syringe FLUSH PRN; fentaNYL 100 MCG/2 ML SDV ONE
--- NOTE | 2019-11-10 08:35 | PCM.PREANE ---
Preanesthetic Assessment - Procedure Proposed Procedure: EGD - Anesthesia/Transfusion/Family Hx Anesthesia History: Prior Anesthesia Without Reaction Transfusion History: No Prior Transfusion(s) Intubation History: Unknown - Review of Systems General: No Symptoms Pulmonary: No Symptoms Cardiovascular: No Symptoms Gastrointestinal: No Symptoms Neurological: No Symptoms Other: Reports: None - Physical Assessment NPO Status Date: 11/09/19 NPO Status Time: 21:00 Vital Signs: Last Vital Signs Temp 97.8 F 11/10/19 08:10 Pulse 88 11/10/19 08:10 Resp 16 11/10/19 08:10 BP 114/73 11/10/19 08:10 Pulse Ox 99 11/10/19 08:10 ASA Class: 2 Mental Status: Alert & Oriented x3 Airway Class: Mallampati = 2 Dentition: Reports: Missing Tooth/Teeth (multiple missing lower right/left molars/premolars, left and right upper 1st premolars ), Caries (Decayed upper front incisors ) Thyro-Mental Finger Breadths: 3 Mouth Opening Finger Breadths: 3 ROM/Head Extension: Full Lungs: Clear to Auscultation, Normal Respiratory Effort Cardiovascular: Regular Rate, Regular Rhythm - Allergies Allergies/Adverse Reactions: Allergies Allergy/AdvReac Type Severity Reaction Status Date / Time adhesive tape Allergy Rash Verified 11/09/19 11:44 - Acknowledgements Anesthesia Type Planned: MAC Pt an Appropriate Candidate for the Planned Anesthesia: Yes Alternatives and Risks of Anesthesia Discussed w Pt/Guardian: Yes Pt/Guardian Understands and Agrees with Anesthesia Plan: Yes PreAnesthesia Questionnaire HEENT History: Reports: Impaired Vision, Other (See Below) Other HEENT History: Reading glasses Respiratory History: Reports: Asthma Gastrointestinal History: Reports: GERD, Pancreatitis, Other (See Below) Other Gastrointestinal History: Acute abdominal pain, diarrhea, H.Pylori Genitourinary History: Reports: Other (See Below) Other Genitourinary History: Dysuria, Urinary frequency 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: Musculoskeletal History: Reports: None Other Musculoskeletal History: Accessory nebicular Neurological History: Reports: Headaches, Chronic, Migraines, Vertigo, Other ( See Below) Other Neuro History: Low back pain with left sciatica - Infectious Disease History Infectious Disease History: Reports: C-Difficile - Past Surgical History Head Surgeries/Procedures: Reports: None HEENT Surgical History: Reports: None Cardiovascular Surgical History: Reports: None Respiratory Surgical History: Reports: None GI Surgical History: Reports: Appendectomy, Cholecystectomy Female Surgical History: Reports: Hysterectomy Endocrine Surgical History: Reports: None Neurological Surgical History: Reports: None Musculoskeletal Surgical History: Reports: Other (See Below) Other Musculoskeletal Surgeries/Procedures:: Left foot surgery Oncologic Surgical History: Reports: None Dermatological Surgical History: Reports: None - SUBSTANCE USE Smoking Status *Q: Never Smoker Second Hand Smoke Exposure: No Recreational Drug Use History: No - HOME MEDS Home Medications: Home Meds Ondansetron HCl [Zofran] 4 mg PO Q4HR PRN 06/23/18 [History] Omeprazole 20 mg PO DAILY 02/21/19 [History] Acetaminophen [Tylenol Extra Strength] 500 mg PO Q4H PRN 11/09/19 [History] Famotidine 40 mg PO DAILY 11/09/19 [History] Sucralfate 1 gm PO QID 11/09/19 [History] - CURRENT (IN HOUSE) MEDS Current Meds: Current Medications Lactated Ringer's (Ringers, Lactated) 1,000 mls @ 125 mls/hr IV ASDIRECTED AMELIA Stop: 11/10/19 23:00 Lidocaine/Sodium Bicarbonate (Buffered Lidocaine 1% In Ns 8.4%) 0.25 ml IDERM ONETIME PRN PRN Reason: Prior to IV Start Stop: 11/10/19 18:00 Sodium Chloride (Saline Flush) 10 ml FLUSH ASDIRECTED PRN PRN Reason: Keep Vein Open Stop: 11/10/19 18:00 Discontinued Medications Fentanyl (Sublimaze) Confirm Administered Dose 100 mcg .ROUTE .STK-MED ONE Stop: 11/10/19 07:21 Lidocaine HCl (Xylocaine-Mpf 1%) Confirm Administered Dose 4 mls @ as directed .ROUTE .STK-MED ONE Stop: 11/10/19 07:20 Midazolam HCl (Versed 1 Mg/Ml) Confirm Administered Dose 2 mg .ROUTE .STK-MED ONE Stop: 11/10/19 07:21 Propofol (Diprivan 20 Ml) Confirm Administered Dose 200 mg .ROUTE .STK-MED ONE Stop: 11/10/19 07:20
[2019-11-10] MEDS ORDERED: Propofol 200 MG/20 ML SDV ONE ×2 (09:24→09:33)
--- NOTE | 2019-11-10 09:44 | PCM.PRNOTE ---
- Free Text/Narrative Note: Date: 11/10/2019 Procedure: Diagnostic esophagogastroduodenoscopy Endoscopist: Holden Samayoa MD Findings: no gross mucosal abnormalities noted. Sampling biopsies of duodenal, gastric, and distal esophageal mucosa obtained. Planned colonoscopy was aborted because the patient did not do a bowel prep. Detailed Report: The patient was taken to the endoscopy suite and placed in left lateral decubitus position. Timeout was performed, monitored anesthesia care was initiated. A bite-block was placed, and a lubricated upper endoscope was inserted from the mouth all the way to the second portion of the duodenum. The duodenal mucosa appeared grossly normal; a mucosal biopsy was taken with cold forceps. The pyloric antrum appeared normal as well, a sample mucosal biopsy was obtained at this region. The remainder of the stomach appeared grossly normal, no hiatal hernia was noted on retroflexion of the scope. Withdrawal of the scope into the distal esophagus revealed a normal-appearing Z line. Biopsy of the distal esophageal mucosa was obtained. The patient tolerated the procedure well. Prior to fully awakening from sedation, visual inspection of the anus was conducted and no hemorrhoidal disease or other perianal abnormality was noted. Digital rectal exam was unremarkable. Holden Samayoa MD General Surgery
[2019-11-10] MEDS ORDERED: Ondansetron 4 MG/2 ML SDV ONE (09:51)
--- NOTE | 2019-11-10 09:58 | PCM48HPAN ---
Post Anesthesia Note - EVALUATION WITHIN 48HRS OF ANESTHETIC Vital Signs in Normal Range: Yes Patient Participated in Evaluation: Yes Respiratory Function Stable: Yes Airway Patent: Yes Cardiovascular Function Stable: Yes Hydration Status Stable: Yes Pain Control Satisfactory: Yes Nausea and Vomiting Control Satisfactory: Yes Mental Status Recovered: Yes Vital Signs: Last Vital Signs Temp 97.8 F 11/10/19 08:10 Pulse 88 11/10/19 08:10 Resp 16 11/10/19 08:10 BP 114/73 11/10/19 08:10 Pulse Ox 99 11/10/19 08:10 98% 97.3 20 104 122/78
[2019-11-10 10:39] VITALS: BP 118/77; PULSE 75
== END 2019-11-10 10:23 | disposition home or self-care (01) ==
LOC: JD.SDS 07:58
PROVIDERS: ATTEND Surgery
DX: K29.50 Unspecified chronic gastritis without bleeding (principal); K31.89 Other diseases of stomach and duodenum; K21.9 Gastro-esophageal reflux disease without esophagitis; J45.909 Unspecified asthma, uncomplicated; G43.909 Migraine, unspecified, not intractable, without status migrainosus; Z91.048 Other nonmedicinal substance allergy status; Z79.899 Other long term (current) drug therapy
CPT/HCPCS: 43239; J2001; J2250; J2405; J2704; J7120; 00813; J3010

== ENCOUNTER 2021-06-05 09:15 | Emergency (ER) | payer BC ==
[2021-06-05 09:34] VITALS: BP 120/80; PULSE 75
--- NOTE | 2021-06-05 10:08 | EDM.PDOC ---
ED HPI GENERAL MEDICAL PROBLEM - General Chief Complaint: Chest Pain Stated Complaint: CHEST PAIN AND LT ARM PAIN Time Seen by Provider: 06/05/21 09:55 Source of Information: Reports: Patient History Limitations: Reports: No Limitations - History of Present Illness INITIAL COMMENTS - FREE TEXT/NARRATIVE: 31-year-old female presents to the ED for evaluation of acute onset of left chest pain that rating into her left shoulder and down her left arm towards her hand. She feels that the pain is worsened by movement of her left upper extremity. Pain is also worsened by deep breathing. She describes the pain is fairly sharp and stabbing and travels through to her back under her shoulder blade. Denies cough or sputum production. No fever or chills. No past history of DVT. She has had a bout of similar chest wall pain within the last year and actually had an MRI of her chest and was referred to physiotherapy. Onset: Today, Sudden Onset Date: 06/05/21 Onset Time: 01:00 Duration: Hour(s):, Constant, Getting Worse Location: Reports: Chest Quality: Reports: Ache (Left precordial sharp stabbing chest pain rating through to her mid back and left upper extremity), Sharp, Stabbing, Other (Pain is worsened by deep breathing) Severity: Moderate Improves with: Reports: Rest Worsens with: Reports: Other Context: Denies: Activity (Worse with movement of her left upper extremity and deep breathing), Exercise, Lifting, Sick Contact, Trauma, Other Associated Symptoms: Reports: No Other Symptoms, Chest Pain, Diaphoresis. 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) chest Pain Score (Numeric/FACES): 8 - Related Data Allergies Allergy/AdvReac Type Severity Reaction Status Date / Time adhesive tape Allergy Rash Verified 11/09/19 11:44 Home Meds: Home Meds ondansetron HCL [Zofran] 4 mg PO Q4HR PRN 06/23/18 [History] Omeprazole 20 mg PO DAILY 02/21/19 [History] Acetaminophen [Tylenol Extra Strength] 500 mg PO Q4H PRN 11/09/19 [History] Famotidine 40 mg PO DAILY 11/09/19 [History] Sucralfate 1 gm PO QID 11/09/19 [History] Diclofenac Sodium [Voltaren] 75 mg PO BIDMEALS #16 tab.cr 06/05/21 [Rx] predniSONE [Prednisone] 20 mg PO ASDIRECTED #18 tablet 06/05/21 [Rx] Past Medical History HEENT History: Reports: Impaired Vision Other HEENT History: Reading glasses Cardiovascular History: Reports: None Respiratory History: Reports: Asthma Gastrointestinal History: Reports: Cholelithiasis, Chronic Diarrhea, GERD, Helicobacter Pylori Other Gastrointestinal History: Acute abdominal pain, diarrhea, H.Pylori Genitourinary History: Reports: Pyelonephritis, UTI, Recurrent, Other (See Below) Other Genitourinary History: 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: Musculoskeletal History: Reports: Back Pain, Chronic, Other (See Below) Other Musculoskeletal History: Accessory nebicular Neurological History: Reports: Headaches, Chronic, Migraines, Vertigo, Other (See Below) Other Neuro History: Low back pain with left sciatica Psychiatric History: Reports: None Endocrine/Metabolic History: Reports: None Hematologic History: Reports: None Immunologic History: Reports: None Oncologic (Cancer) History: Reports: None Dermatologic History: Reports: None - Infectious Disease History Infectious Disease History: Reports: C-Difficile - Past Surgical History Head Surgeries/Procedures: Reports: None HEENT Surgical History: Reports: Other (See Below) Other HEENT Surgeries/Procedures: wisdom teeth removed Cardiovascular Surgical History: Reports: None Respiratory Surgical History: Reports: None GI Surgical History: Reports: Appendectomy, Cholecystectomy Female Surgical History: Reports: Hysterectomy (Total abdominal hysterectomy with retention of both ovaries.), Other (See Below) Other Female Surgeries/Procedures: ovarian cyst x2 in December-January 2018 Endocrine Surgical History: Reports: None Neurological Surgical History: Reports: None Musculoskeletal Surgical History: Reports: Other (See Below) Other Musculoskeletal Surgeries/Procedures:: left foot acessory navicular bone removed, screw in place Oncologic Surgical History: Reports: None Dermatological Surgical History: Reports: None Social & Family History - Family History Family Medical History: No Pertinent Family History Respiratory: Reports: COPD Musculoskeletal: Reports: Fibromyalgia Oncologic: Reports: Breast, Cervix - Tobacco Use Tobacco Use Status *Q: Never Tobacco User - Caffeine Use Caffeine Use: Reports: Coffee, Soda Caffeine Use Comment: Daily coffee, 1 can of soda per week - Recreational Drug Use Recreational Drug Use: No - Living Situation & Occupation Living situation: Reports: , with Spouse, with Family (3 kids) Occupation: Unemployed ED ROS GENERAL - Review of Systems Review Of Systems: See Below Constitutional: Denies: Fever, Chills, Malaise, Weakness, Fatigue, Night Sweats, Diaphoresis, Decreased Appetite, Weight Loss HEENT: Reports: No Symptoms Respiratory: Reports: Pleuritic Chest Pain. Denies: Shortness of Breath, Wheezing, Cough, Sputum, Hemoptysis, Other Cardiovascular: Reports: Chest Pain (Pain left chest is made worse by deep breathing.) Endocrine: Reports: No Symptoms GI/Abdominal: Reports: Other (Chronic problems with dyspepsia. History of H. pylori gastritis) : Reports: No Symptoms Musculoskeletal: Reports: Other (Currently experiencing left upper extremity and shoulder pain associated with left anterior chest pain) Skin: Reports: No Symptoms Neurological: Reports: No Symptoms Psychiatric: Reports: No Symptoms Hematologic/Lymphatic: Reports: No Symptoms Immunologic: Reports: No Symptoms ED EXAM, GENERAL - Physical Exam Exam: See Below Exam Limited By: No Limitations General Appearance: Alert, WD/WN, Mild Distress, Other (Temperature is 36.0. Heart rate 75 and sinus. Respiratory is 14 with BP 120/80 and O2 sats of 100% room air.) Eye Exam: Bilateral Eye: Normal Inspection Throat/Mouth: Normal Inspection, Normal Lips, Normal Oropharynx Head: Atraumatic, Normocephalic Neck: Normal Inspection, Supple, Non-Tender, Full Range of Motion, Other (No trapezius muscle tenderness.). No: Lymphadenopathy (L), Lymphadenopathy (R) Respiratory/Chest: No Respiratory Distress, Lungs Clear, Normal Breath Sounds, No Accessory Muscle Use, Other (Patient has no pain on firm compression of her ribs in the midclavicular line on the right side of her chest. Marked tenderness elicited on compression of ribs 4 and 5 midclavicular line left side) Cardiovascular: Normal Peripheral Pulses, Regular Rate, Rhythm, No Edema, No Gallop, No Murmur, No Rub Peripheral Pulses: 3+: Carotid (L), Carotid (R), Radial (L), Radial (R) GI/Abdominal: Normal Bowel Sounds, Soft, Non-Tender, No Organomegaly, No Distention, No Mass, Pelvis Stable Course - Vital Signs Last Recorded V/S: Last Vital Signs Temp 36.0 C L 06/05/21 09:30 Pulse 75 06/05/21 09:30 Resp 14 06/05/21 09:30 BP 120/80 06/05/21 09:30 Pulse Ox 100 06/05/21 09:30 - Orders/Labs/Meds Orders: Active Orders 24 hr Category Date Time Status EKG 12 Lead [EK] Stat Ther 06/05/21 10:01 Ordered - Radiology Interpretation Free Text/Narrative:: 31-year-old female presents to the ED for evaluation of acute onset of left chest pain starting about 0100 hrs. this morning. Pain radiates through to her left back under her scapula. It is aggravated by deep breathing and moving her left upper extremity. Pain radiates from her chest to her shoulder to medial aspect of her left arm particularly the left axilla. No rash identified to be concerning for shingles. Exam reveals clear lung chandler normal heart sounds ECG done by triage nurse is also within normal limits. Pain elicited on compression of ribs 4 and 5 midclavicular line left chest wall. She will have 1 view of the chest performed. Departure - Departure Time of Disposition: 11:33 Disposition: Home, Self-Care 01 Reason for Transfer *Q: Other Condition: Fair Clinical Impression: Anterior chest wall pain Prescriptions: predniSONE [Prednisone] 20 mg PO ASDIRECTED #18 tablet Diclofenac Sodium [Voltaren] 75 mg PO BIDMEALS #16 tab.cr Referrals: Raquel Ty PA-C [Primary Care Provider] - Forms: ED Department Discharge Additional Instructions: Evaluation in the emergency room today in regards to development of acute onset of left anterior chest wall pain which radiates through to your back under the shoulder blade into the left shoulder and down your medial left arm. Examination reveals acute tenderness of left ribs 4 and 5 in the midclavicular line compatible with inflammation of the lining of the rib which we call periostitis. Cause is usually viral in origin. Chest x-ray was normal as was the ECG. There is no evidence of heart involvement. Treatment is anti- inflammatory prednisone 20 mg twice daily with breakfast and supper for 6 days and then 1 tablet in the morning only for another 6 days. Anti-inflammatory Voltaren 75 mg twice daily with breakfast and supper as well for the next 8 days to relieve pain and inflammation. Of note both of these medications take about a day and a half to start to work well. Activity as tolerated. Expect gradual improvement over the next 5 to 8 days. Monitor chest wall armpit and arm on the left side for any signs of a rash in the next 5 days and report to medical care if the rash recurs as this would suggest shingles as the cause of your current pain syndrome. Sepsis Event Note (ED) - Evaluation Sepsis Screening Result: No Definite Risk - Focused Exam Vital Signs: Vital Signs Temp Pulse Resp BP Pulse Ox 06/05/21 09:30 36.0 C L 75 14 120/80 100 - My Orders Last 24 Hours: My Active Orders 06/05/21 10:01 EKG 12 Lead [EK] Stat - Assessment/Plan Last 24 Hours: My Active Orders 06/05/21 10:01 EKG 12 Lead [EK] Stat
--- NOTE | 2021-06-05 10:40 | CR ---
Chest: Frontal view of the chest was obtained. Comparison: No prior chest imaging is available. Heart size and mediastinum are within normal limits. Lungs are clear with no acute parenchymal change. Bony structures show slight scoliosis within the spine. Surgical clips are seen from prior cholecystectomy. Impression: 1. Nothing acute is seen on frontal chest x-ray. Diagnostic code #1
== END 2021-06-05 11:49 | disposition home or self-care (01) ==
LOC: JD.ED 09:15
DX: R07.89 Other chest pain (principal); K21.9 Gastro-esophageal reflux disease without esophagitis; Z91.048 Other nonmedicinal substance allergy status; Z79.899 Other long term (current) drug therapy
CPT/HCPCS: 71045; 71045-26; 93005; 99283; 99284-25

== ENCOUNTER 2025-01-12 10:14 | Emergency (ER) | payer SELFPAY ==
[2025-01-12] MEDS ORDERED: Sodium Chloride 0.9% 10 ML Syringe FLUSH PRN (10:29)
[2025-01-12 10:48] LABS: BASOPHILS PERCENT AUTO 0.3 % (0.0-1.0); EOSINOPHILS PERCENT AUTO 0.4 % (0.0-6.0); HEMATOCRIT 46.4 % (37.0-47.0); IMMATURE GRAN ABSOLUTE AUTO 0.01 K/mm3 (0.00-0.05); IMMATURE GRAN PERCENT AUTO 0.1 % (0.0-0.4); LYMPHOCYTES ABSOLUTE AUTO 1.3 K/mm3 (1.0-4.8); LYMPHOCYTES PERCENT AUTO 19.8 % (24.0-44.0); MEAN CORPUSCULAR HEMOGLOBIN 31.6 pg (28.0-32.0); MEAN CORPUSCULAR HGB CONC 34.5 g/dl (32.0-36.0); MEAN CORPUSCULAR VOLUME 91.7 fl (83.0-99.0); MEAN PLATELET VOLUME 8.9 fl (9.4-12.3); MONOCYTES ABSOLUTE AUTO 0.5 K/mm3 (0.0-0.8); MONOCYTES PERCENT AUTO 7.8 % (0.0-8.0); NEUTROPHILS ABSOLUTE AUTO 4.8 K/mm3 (1.8-7.7); NEUTROPHILS PERCENT AUTO 71.6 % (41.0-71.0); PLATELET COUNT,PLT 348 K/mm3 (150-400); RED BLOOD CELL COUNT 5.06 M/mm3 (4.10-5.30); WHITE BLOOD CELL COUNT,WBC 6.76 K/mm3 (3.9-11.3)
[2025-01-12] MEDS: Ketorolac 30 MG/ML SDV IVPUSH ONE (10:49)
[2025-01-12] MEDS: diphenhydrAMINE 50 MG/ML SDV IVPUSH ONE (10:49)
[2025-01-12] MEDS: Metoclopramide 10 MG/2 ML SDV IVPUSH ONE (10:49)
[2025-01-12] MEDS: Sodium Chloride 0.9% 1,000 ML IV STA (10:49)
[2025-01-12 11:11] LABS: A/G RATIO 1.1 (1-2); ALBUMIN 4.3 g/dl (3.4-5.0); BILIRUBIN TOTAL 0.4 mg/dL (0.2-1.0); CALCIUM 9.2 mg/dL (8.5-10.1); PROTEIN TOTAL,TP 8.1 g/dl (6.4-8.2)
[2025-01-12] MEDS: Acetaminophen 325 MG Tab PO ONE (12:02)
[2025-01-12 12:42] VITALS: BP 130/71; PULSE 74
== END 2025-01-12 12:05 | disposition home or self-care (01) ==
LOC: JD.ED 10:14
DX: G43.909 Migraine, unspecified, not intractable, without status migrainosus (principal); Z91.048 Other nonmedicinal substance allergy status; Z79.899 Other long term (current) drug therapy; Z90.49 Acquired absence of other specified parts of digestive tract; Z90.710 Acquired absence of both cervix and uterus
CPT/HCPCS: 36415; 80053; 84703; 85025; 96361; 96374; 96375; 99284; A9270; J1200; J1885; J2765; J7030; 99283